=== PATIENT | male | born 1980 | race Caucasian/White ===

== ENCOUNTER 2019-03-24 | Observation (INO) | payer BC, SELFPAY ==
[2019-03-24] VITALS (15 sets, daily range): BP systolic 121–186; BP diastolic 55–118; PULSE 72–96; RESP 14–101; TEMP 36.2–36.9; O2SAT 95–100; BMI 30.4; BMI 30.2
--- NOTE | 2019-03-24 00:06 | DI.RAD.S_ITS ---
PROCEDURE: XR CHEST 1V INDICATIONS: chest pain TECHNIQUE: One view of the chest was acquired. COMPARISON: CR, CHEST 2VW, 11/21/2007, 18:28. FINDINGS: Surgical changes and devices: None. Lungs and pleura: Lungs are clear. No pleural effusions or pneumothorax. Mediastinum: Mediastinal contours appear normal. Heart size is normal. Bones and chest wall: No suspicious bony lesions. Overlying soft tissues appear unremarkable. IMPRESSION: Normal for age, source of current chest pain symptoms is not seen. Dictated by: Rosendo Díaz M.D. on 03/24/2019 at 8:26 Approved by: Rosendo Díaz M.D. on 03/24/2019 at 8:27
[2019-03-24] MEDS: ASPIRIN 81 MG TAB 324 MG PO (00:14)
[2019-03-24] MEDS: SODIUM CHLORIDE 0.9% 1,000 ML 1000 ML IV (00:15)
--- NOTE | 2019-03-24 00:36 | ED.CHESTPAIN ---
HPI - Chest Pain General Chief Complaint: Chest Pain Stated Complaint: tightness in chest has HBP dizziness Time Seen by Provider: 03/24/19 00:06 Source: patient Mode of arrival: ambulatory Limitations: no limitations History of Present Illness HPI narrative: Patient is a 38-year-old male who presents with chest tightness and shaking. He says it started suddenly this evening. He heard his kids running around will come from his sleep and then he noticed it. He knows that his blood pressure was quite elevated he does have a history of hypertension he took an extra lisinopril tablet. Pain sort of radiates to his neck but not his back or arms. He denies any shortness of breath he feels shaky all over. He says that he just got back from vacation he admits to drinking more than 6 drinks a day while on vacation he has not had any alcohol in over 24 hours. He was drinking water today he worked outside in the hot weather as well. He denies any nausea no abdominal pain no dyspnea with exertion. He does have a family history his father had CA with stents at the age of 50 , also grandfather's both sides had heart issues in their 60s is 70 MD complaint: chest pain Onset (ago): minute(s) Duration: constant Onset: during rest Pain location: substernal Severity: moderate Quality: tightness Relieving factors: nothing Exacerbating factors: nothing Related Data Allergies Allergy/AdvReac Type Severity Reaction Status Date / Time No Known Drug Allergies Allergy Verified 03/24/19 00:09 Review of Systems Review of Systems GENERAL: Denies chills, fatigue, malaise, fever, sweats, travel HEENT: Denies sinus pain, ear pain, sore throat, difficulty swallowing, neck pain RESPIRATORY: Denies dyspnea, cough, wheezing, hemoptysis, sputum. CARDIOVASCULAR: See HPI GASTROINTESTINAL: Denies nausea, vomiting, abdominal pain, diarrhea, constipation, melena. : Denies dysuria, frequency, incontinence, hematuria, urinary retention, flank pain. MUSCULOSKELETAL: Denies weakness, joint pain, or bony pain SKIN: No rash, no erythema, no pruritus NEUROLOGIC: Denies weakness, dizziness, headache, numbness, change in speech, confusion PSYCHIATRIC: No concerning psychosocial issues. 12 point review of systems is negative except for those stated above and HPI [facility] Medical History Hypertension (Acute) Social History (Updated 03/24/19 @ 00:39 by Christina Arrieta DO) household members: spouse Smoking Status: Never smoker alcohol intake: current Social History household members: spouse Smoking Status: Never smoker alcohol intake: current Exam Initial Vital Signs Initial Vital Signs: Vital Signs Temperature 98.2 F 03/24/19 00:03 Pulse Rate 87 03/24/19 00:03 Respiratory Rate 17 03/24/19 00:03 Blood Pressure 186/118 H 03/24/19 00:03 Pulse Oximetry 100 03/24/19 00:03 GENERAL: Well-appearing, well-nourished and in no acute distress. HEENT: Head atraumatic,EOMI, pupils reactive, face symmetric, moist mucous membranes CARDIOVASCULAR: Regular rate and rhythm without murmurs, rubs or gallops. RESPIRATORY: Breath sounds equal bilaterally, no wheezes rales or rhonchi. ABDOMEN: Soft, nontender. Normoactive bowel sounds all 4 quadrants. No guarding or rebound. EXTREMITIES: Normal range of motion, no clubbing or edema. Neurovascularly intact NEUROLOGICAL: Alert and oriented x4.Normal gait and speech. Cranial nerves II through XII grossly intact. No obvious tremors or asterixis SKIN: Warm, dry, no laceration, no petechiae, no rashes or lesions. Scores PERC Score Age greater than or equal to 50 years: No Heart rate greater than or equal to 100 bpm: No Room Air O2 Sat less than 95%: No Unilateral leg swelling: No Recent trauma or surgery: No Hemoptysis: No Prior PE or DVT: No Hormone Use: No Total PERC Score: 0 Wells' Criteria for PE Clinical signs and symptoms of DVT: No PE is #1 Dx or equally likely: No Heart rate > 100: No Immobilization at least 3 days or surg in previous 4 weeks: No History of PE or DVT: No Hemoptysis: No Malignancy w/Treatment within 6 months or palliative: No Wells' PE Score total: 0 Course Orders Ordered: ED Orders 03/24/19 00:06 XR chest 1V Stat EKG-12 Lead Stat 03/24/19 00:25 B Type Natriuretic Peptide Stat Complete Blood Count AUTO DIFF Stat Comprehensive Metabolic Panel Stat Lipase Stat Troponin & CK Cardiac Panel Stat 03/24/19 01:00 Lipid Panel Stat 03/24/19 03:25 Troponin I Stat Sodium Chloride (Normal Saline 0.9%) 1,000 mls @ 1,000 mls/hr IV CONT NATASHA Last Infusion: 03/24/19 01:51 Dose: 0 mls/hr Admin: 03/24/19 00:15 Dose: 1,000 mls/hr Discontinued Medications Aspirin (Aspirin Chew) 324 mg PO NOW ONE Stop: 03/24/19 00:07 Last Admin: 03/24/19 00:14 Dose: 324 mg Nitroglycerin (Nitrostat) 0.4 mg SL NOW ONE Stop: 03/24/19 01:28 Last Admin: 03/24/19 01:42 Dose: 0.4 mg Vital Signs - 8 hr 03/24/19 00:03 03/24/19 00:33 03/24/19 01:42 Temperature 98.2 F Pulse Rate 87 82 78 Respiratory Rate 17 19 Blood Pressure 186/118 H 150/55 H Blood Pressure [Left Arm] 128/83 Pulse Oximetry 100 99 03/24/19 01:48 03/24/19 01:54 03/24/19 02:39 Temperature Pulse Rate 96 H 94 H 80 Respiratory Rate 101 H 18 Blood Pressure 140/83 Blood Pressure [Left Arm] 140/83 138/90 Pulse Oximetry 98 98 03/24/19 03:55 Temperature Pulse Rate 77 Respiratory Rate 17 Blood Pressure Blood Pressure [Left Arm] 144/91 H Pulse Oximetry 97 MDM - Chest Pain Lab Data Attestation: I reviewed the patient's lab results. Result diagrams: 03/24/19 00:25 03/24/19 00:25 Lab Results 03/24/19 03/24/19 03/24/19 Range/Units 00:25 00:25 00:25 WBC 8.9 (4.5-11.0) X10^3/uL RBC 4.78 (4.5-5.9) X10^6/uL Hgb 15.6 (13.5-17.5) g/dL Hct 45.1 (41-53) % MCV 94.3 (80-100) fL MCH 32.6 (26-34) PG MCHC 34.5 (30-36) % RDW 13.1 (11.6-14.8) % Plt Count 338 (150-400) X10^3/uL Neut % (Auto) 46.8 L (50-75) % Lymph % (Auto) 41.0 H (25-40) % Fisher % (Auto) 9.0 (3-14) % Eos % (Auto) 2.6 (2-4) % Baso % (Auto) 0.6 (0-2) % Neut # (Auto) 4200 (6793-4942) /uL Lymph # (Auto) 3700 (6517-0120) /uL Fisher # (Auto) 80 (0-900) /uL Eos # (Auto) 20 (0-450) /uL Baso # (Auto) 10 (0-100) /uL D-Dimer Cancelled Sodium 133 L (137-145) mmol/L Potassium 4.5 (3.4-5.1) mmol/L Chloride 98 (98-107) mmol/L Carbon Dioxide 20 L (22-32) mmol/L BUN 15 (9-20) mg/dL Creatinine 0.80 (0.66-1.25) mg/dL Estimated GFR > 60.0 (>60) mL/min BUN/Creatinine Ratio 18.8 (6-22) Glucose 97 (70-100) mg/dL Calcium 8.6 (8.4-10.2) mg/dL Total Bilirubin 2.1 H (0.2-1.3) mg/dL AST 213 H (17-59) IU/L ALT 70 (21-72) IU/L Alkaline Phosphatase 103 (38-126) U/L Total Creatine Kinase 120 (55-170) U/L CK-MB (CK-2) 1.33 (<2.37) ng/mL CK-MB (CK-2) Rel Index 1.1 L (1.5-5.0) % Troponin I 0.018 (0.01-0.034) ng/mL B-Natriuretic Peptide < 100 (<100) Total Protein 8.6 H (6.3-8.2) g/dL Albumin 4.3 (3.5-5.0) g/dL Globulin 4.3 H (1.7-4.1) g/dL Albumin/Globulin Ratio 1.0 (1.0-2.8) Triglycerides (35-150) mg/dL Cholesterol (140-199) mg/dL LDL Cholesterol, Calc HDL Cholesterol (40-60) mg/dL Lipase 88 (23-300) U/L 03/24/19 03/24/19 Range/Units 01:00 03:25 WBC (4.5-11.0) X10^3/uL RBC (4.5-5.9) X10^6/uL Hgb (13.5-17.5) g/dL Hct (41-53) % MCV (80-100) fL MCH (26-34) PG MCHC (30-36) % RDW (11.6-14.8) % Plt Count (150-400) X10^3/uL Neut % (Auto) (50-75) % Lymph % (Auto) (25-40) % Fisher % (Auto) (3-14) % Eos % (Auto) (2-4) % Baso % (Auto) (0-2) % Neut # (Auto) (6635-8605) /uL Lymph # (Auto) (9971-5717) /uL Fisher # (Auto) (0-900) /uL Eos # (Auto) (0-450) /uL Baso # (Auto) (0-100) /uL D-Dimer Sodium (137-145) mmol/L Potassium (3.4-5.1) mmol/L Chloride (98-107) mmol/L Carbon Dioxide (22-32) mmol/L BUN (9-20) mg/dL Creatinine (0.66-1.25) mg/dL Estimated GFR (>60) mL/min BUN/Creatinine Ratio (6-22) Glucose (70-100) mg/dL Calcium (8.4-10.2) mg/dL Total Bilirubin (0.2-1.3) mg/dL AST (17-59) IU/L ALT (21-72) IU/L Alkaline Phosphatase (38-126) U/L Total Creatine Kinase (55-170) U/L CK-MB (CK-2) (<2.37) ng/mL CK-MB (CK-2) Rel Index (1.5-5.0) % Troponin I 0.017 (0.01-0.034) ng/mL B-Natriuretic Peptide (<100) Total Protein (6.3-8.2) g/dL Albumin (3.5-5.0) g/dL Globulin (1.7-4.1) g/dL Albumin/Globulin Ratio (1.0-2.8) Triglycerides 4451 H (35-150) mg/dL Cholesterol 424 H (140-199) mg/dL LDL Cholesterol, Calc TNP HDL Cholesterol 19 L (40-60) mg/dL Lipase (23-300) U/L Urine Dip Bedside Urine Glucose Negative Bedside Urine Bilirubin - Negative Bedside Urine Ketone ++ 40 Urine Specific [place] 1.020 Bedside Urine Occult Blood - Negative Bedside Urine pH 5.5 Bedside Urine Protein +/- 15 Bedside Urine Urobilinogen - Negative Bedside Urine Nitrite - Negative Bedside Urine Leukocytes - Negative Esterase Imaging Data Chest x-ray: Attestation: I personally reviewed and interpreted this imaging study as follows: My impression: no acute cardiopulmonary process ECG Data Attestation: I personally reviewed and interpreted this ECG as follows: Prior ECG tracings: not available for review Interpretation: Normal sinus rhythm rate 87 P are interval 157 QRS [address] changes some artifact noted no T-wave inversions EKG 2. Sinus rhythm rate [address] changes or T-wave inversions similar to prior MDM Narrative Medical decision making narrative: Lab called and said that patient's blood is at milky and they needed to re-draw him. Lipid panel is added to the blood work he has extremely elevated triglycerides. He says that while on vacation he ate a bunch of meat and he drank alcohol heavily. He says typically he eats salads. Overall his pain has decreased his blood pressure has improved. He was given nitroglycerin to see if that helped with his chest discomfort by that time it was almost gone he did not notice much change or difference with nitroglycerin. He traveled some more close in state just under 4 hours away at this time I do not the patient has a PE. Low risk. DTs was considered with patient's shakiness however he has no active tremors and does not seem to be in withdrawal from alcohol. All of the symptoms seem to have improved while in the emergency department. Patient has familial history of cardiac disease at young age with significantly elevated triglycerides and concerning symptoms. At this time he has 2-troponins but will still need to have cardiac stress testing be placed on medications. 4:10 a.m. Elijah MOSES updated on patients symptoms test results agrees with observation. Discharge Plan Departure Patient Disposition: Admitted as Observation Clinical Impression: Essential hypertriglyceridemia Chest pain Qualifiers: Chest pain type: unspecified Qualified Code(s): R07.9 - Chest pain, unspecified Admit Date/Time: 03/24/19 04:06 Admit Provider: Dwayne Robbins
--- NOTE | 2019-03-24 00:39 | ED_ITS ---
HPI - Chest Pain General Chief Complaint: Chest Pain Stated Complaint: tightness in chest has HBP dizziness Time Seen by Provider: 03/24/19 00:06 Source: patient Mode of arrival: ambulatory Limitations: no limitations History of Present Illness HPI narrative: Patient is a 38-year-old male who presents with chest tightness and shaking. He says it started suddenly this evening. He heard his kids running around will come from his sleep and then he noticed it. He knows that his blood pressure was quite elevated he does have a history of hypertension he took an extra lisinopril tablet. Pain sort of radiates to his neck but not his back or arms. He denies any shortness of breath he feels shaky all over. He s ays that he just got back from vacation he admits to drinking more than 6 drinks a day while on vacation he has not had any alcohol in over 24 hours. He was drinking water today he worked outside in the hot weather as well. He denies any nausea no abdominal pain no dyspnea with exertion. He does have a family history his father had MS with stents at the age of 50 , also grandfather's both sides had heart issues in their 60s is 70 MD complaint: chest pain Onset (ago): minute(s) Duration: constant Onset: during rest Pain location: substernal Severity: moderate Quality: tightness Relieving factors: nothing Exacerbating factors: nothing Related Data Allergies Allergy/AdvReac Type Severity Reaction Status Date / Time No Known Drug Allergies Allergy Verified 03/24/19 00:09 Review of Systems Review of Systems GENERAL: Denies chills, fatigue, malaise, fever, sweats, travel HEENT: Denies sinus pain, ear pain, sore throat, difficulty swallowing, neck pain RESPIRATORY: Denies dyspnea, cough, wheezing, hemoptysis, sputum. CARDIOVASCULAR: See HPI GASTROINTESTINAL: Denies nausea, vomiting, abdominal pain, diarrhea, constipation, melena. : Denies dysuria, frequency, incontinence, hematuria, urinary retention, flank pain. MUSCULOSKELETAL: Denies weakness, joint pain, or bony pain SKIN: No rash, no erythema, no pruritus NEUROLOGIC: Denies weakness, dizziness, headache, numbness, change in speech, confusion PSYCHIATRIC: No concerning psychosocial issues. 12 point review of systems is negative except for those stated above and HPI [facility] Medical History Hypertension (Acute) Social History (Updated 03/24/19 @ 00:39 by Christina Arrieta DO) household members: spouse Smoking Status: Never smoker alcohol intake: current Social History household members: spouse Smoking Status: Never smoker alcohol intake: current Exam Initial Vital Signs Initial Vital Signs: Vital Signs Temperature 98.2 F 03/24/19 00:03 Pulse Rate 87 03/24/19 00:03 Respiratory Rate 17 03/24/19 00:03 Blood Pressure 186/118 H 03/24/19 00:03 Pulse Oximetry 100 03/24/19 00:03 GENERAL: Well-appearing, well-nourished and in no acute distress. HEENT: Head atraumatic,EOMI, pupils reactive, face symmetric, moist mucous membranes CARDIOVASCULAR: Regular rate and rhythm without murmurs, rubs or gallops. RESPIRATORY: Breath sounds equal bilaterally, no wheezes rales or rhonchi. ABDOMEN: Soft, nontender. Normoactive bowel sounds all 4 quadrants. No guardi ng or rebound. EXTREMITIES: Normal range of motion, no clubbing or edema. Neurovascularly intact NEUROLOGICAL: Alert and oriented x4.Normal gait and speech. Cranial nerves II through XII grossly intact. No obvious tremors or asterixis SKIN: Warm, dry, no laceration, no petechiae, no rashes or lesions. Scores PERC Score Age greater than or equal to 50 years: No Heart rate greater than or equal to 100 bpm: No Room Air O2 Sat less than 95%: No Unilateral leg swelling: No Recent trauma or surgery: No Hemoptysis: No Prior PE or DVT: No Hormone Use: No Total PERC Score: 0 Wells' Criteria for PE Clinical signs and symptoms of DVT: No PE is #1 Dx or equally likely: No Heart rate > 100: No Immobilization at least 3 days or surg in previous 4 weeks: No History of PE or DVT: No Hemoptysis: No Malignancy w/Treatment within 6 months or palliative: No Wells' PE Score total: 0 Course Orders Ordered: ED Orders 03/24/19 00:06 XR chest 1V Stat EKG-12 Lead Stat 03/24/19 00:25 B Type Natriuretic Peptide Stat Complete Blood Count AUTO DIFF Stat Comprehensive Metabolic Panel Stat Lipase Stat Troponin & CK Cardiac Panel Stat 03/24/19 01:00 Lipid Panel Stat 03/24/19 03:25 Troponin I Stat Sodium Chloride (Normal Saline 0.9%) 1,000 mls @ 1,000 mls/hr IV CONT NATASHA Last Infusion: 03/24/19 01:51 Dose: 0 mls/hr Admin: 03/24/19 00:15 Dose: 1,000 mls/hr Discontinued Medications Aspirin (Aspirin Chew) 324 mg PO NOW ONE Stop: 03/24/19 00:07 Last Admin: 03/24/19 00:14 Dose: 324 mg Nitroglycerin (Nitrostat) 0.4 mg SL NOW ONE Stop: 03/24/19 01:28 Last Admin: 03/24/19 01:42 Dose: 0.4 mg Vital Signs - 8 hr 03/24/19 00:03 03/24/19 00:33 03/24/19 01:42 Temperature 98.2 F Pulse Rate 87 82 78 Respiratory Rate 17 19 Blood Pressure 186/118 H 150/55 H Blood Pressure [Left Arm] 128/83 Pulse Oximetry 100 99 03/24/19 01:48 03/24/19 01:54 03/24/19 02:39 Temperature Pulse Rate 96 H 94 H 80 Respiratory Rate 101 H 18 Blood Pressure 140/83 Blood Pressure [Left Arm] 140/83 138/90 Pulse Oximetry 98 98 03/24/19 03:55 Temperature Pulse Rate 77 Respiratory Rate 17 Blood Pressure Blood Pressure [Left Arm] 144/91 H Pulse Oximetry 97 MDM - Chest Pain Lab Data Attestation: I reviewed the patient's lab results. Result diagrams: 03/24/19 00:25 03/24/19 00:25 Lab Results 03/24/19 03/24/19 03/24/19 Range/Units 00:25 00:25 00:25 WBC 8.9 (4.5-11.0) X10^3/uL RBC 4.78 (4.5-5.9) X10^6/uL Hgb 15.6 (13.5-17.5) g/dL Hct 45.1 (41-53) % MCV 94.3 (80-100) fL MCH 32.6 (26-34) PG MCHC 34.5 (30-36) % RDW 13.1 (11.6-14.8) % Plt Count 338 (150-400) X10^3/uL Neut % (Auto) 46.8 L (50-75) % Lymph % (Auto) 41.0 H (25-40) % [place] % (Auto) 9.0 (3-14) % Eos % (Auto) 2.6 (2-4) % Baso % (Auto) 0.6 (0-2) % Neut # (Auto) 4200 (6195-9220) /uL Lymph # (Auto) 3700 (7951-9342) /uL [place] # (Auto) 80 (0-900) /uL Eos # (Auto) 20 (0-450) /uL Baso # (Auto) 10 (0-100) /uL D-Dimer Cancelled Sodium 133 L (137-145) mmol/L Potassium 4.5 (3.4-5.1) mmol/L Chloride 98 (98-107) mmol/L Carbon Dioxide 20 L (22-32) mmol/L BUN 15 (9-20) mg/dL Creatinine 0.80 (0.66-1.25) mg/dL Estimated GFR > 60.0 (>60) mL/min BUN/Creatinine Ratio 18.8 (6-22) Glucose 97 (70-100) mg/dL Calcium 8.6 (8.4-10.2) mg/dL Total Bilirubin 2.1 H (0.2-1.3) mg/dL AST 213 H (17-59) IU/L ALT 70 (21-72) IU/L Alkaline Phosphatase 103 (38-126) U/L Total Creatine Kinase 120 (55-170) U/L CK-MB (CK-2) 1.33 (<2.37) ng/mL CK-MB (CK-2) Rel Index 1.1 L (1.5-5.0) % Troponin I 0.018 (0.01-0.034) ng/mL B-Natriuretic Peptide < 100 (<100) Total Protein 8.6 H (6.3-8.2) g/dL Albumin 4.3 (3.5-5.0) g/dL Globulin 4.3 H (1.7-4.1) g/dL Albumin/Globulin Ratio 1.0 (1.0-2.8) Triglycerides (35-150) mg/dL Cholesterol (140-199) mg/dL LDL Cholesterol, Calc HDL Cholesterol (40-60) mg/dL Lipase 88 (23-300) U/L 03/24/19 03/24/19 Range/Units 01:00 03:25 WBC (4.5-11.0) X10^3/uL RBC (4.5-5.9) X10^6/uL Hgb (13.5-17.5) g/dL Hct (41-53) % MCV (80-100) fL MCH (26-34) PG MCHC (30-36) % RDW (11.6-14.8) % Plt Count (150-400) X10^3/uL Neut % (Auto) (50-75) % Lymph % (Auto) (25-40) % [place] % (Auto) (3-14) % Eos % (Auto) (2-4) % Baso % (Auto) (0-2) % Neut # (Auto) (9649-5876) /uL Lymph # (Auto) (7940-0380) /uL [place] # (Auto) (0-900) /uL Eos # (Auto) (0-450) /uL Baso # (Auto) (0-100) /uL D-Dimer Sodium (137-145) mmol/L Potassium (3.4-5.1) mmol/L Chloride (98-107) mmol/L Carbon Dioxide (22-32) mmol/L BUN (9-20) mg/dL Creatinine (0.66-1.25) mg/dL Estimated GFR (>60) mL/min BUN/Creatinine Ratio (6-22) Glucose (70-100) mg/dL Calcium (8.4-10.2) mg/dL Total Bilirubin (0.2-1.3) mg/dL AST (17-59) IU/L ALT (21-72) IU/L Alkaline Phosphatase (38-126) U/L Total Creatine Kinase (55-170) U/L CK-MB (CK-2) (<2.37) ng/mL CK-MB (CK-2) Rel Index (1.5-5.0) % Troponin I 0.017 (0.01-0.034) ng/mL B-Natriuretic Peptide (<100) Total Protein (6.3-8.2) g/dL Albumin (3.5-5.0) g/dL Globulin (1.7-4.1) g/dL Albumin/Globulin Ratio (1.0-2.8) Triglycerides 4451 H (35-150) mg/dL Cholesterol 424 H (140-199) mg/dL LDL Cholesterol, Calc TNP HDL Cholesterol 19 L (40-60) mg/dL Lipase (23-300) U/L Urine Dip Bedside Urine Glucose Negative Bedside Urine Bilirubin - Negative Bedside Urine Ketone ++ 40 Urine Specific [place] 1.020 Bedside Urine Occult Blood - Negative Bedside Urine pH 5.5 Bedside Urine Protein +/- 15 Bedside Urine Urobilinogen - Negative Bedside Urine Nitrite - Negative Bedside Urine Leukocytes - Negative Esterase Imaging Data Chest x-ray: Attestation: I personally reviewed and interpreted this imaging study as follows: My impression: no acute cardiopulmonary process ECG Data Attestation: I personally reviewed and interpreted this ECG as follows: Prior ECG tracings: not available for review Interpretation: Normal sinus rhythm rate 87 P are interval 157 QRS [address] changes some artifact noted no T-wave inversions EKG 2. Sinus rhythm rate [address] changes or T-wave inversions similar to prior MDM Narrative Medical decision making narrative: Lab called and said that patient's blood is at milky and they needed to re-draw him. Lipid panel is added to the blood work he has extremely elevated triglycerides. He says that while on vacation he ate a bunch of meat and he drank alcohol heavily. He says typically he eats salads. Overall his pain has decreased his blood pressure has improved. He was given nitroglycerin to see if that helped with his chest discomfort by that time it was almost gone he did not notice much change or difference with nitroglycerin. He traveled some more close [place] state just under 4 hours away at this time I do not the patient has a PE. Low risk. DTs was considered with patient's shakiness however he has no active tremors and does not seem to be in withdrawal from alcohol. All of the symptoms seem to have improved while in the emergency department. Patient has familial history of cardiac disease at young age with significantly elevated triglycerides and concerning symptoms. At this time he has 2-troponins but will still need to have cardiac stress testing be placed on medications. 4:10 a.m. Elijah MOSES updated on patients symptoms test results agrees with observation. Discharge Plan Departure Patient Disposition: Admitted as Observation Clinical Impression: Essential hypertriglyceridemia Chest pain Qualifiers: Chest pain type: unspecified Qualified Code(s): R07.9 - Chest pain, unspecified Admit Date/Time: 03/24/19 04:06 Admit Provider: Dwayne Robbins
[2019-03-24 01:06] LABS: B Type Natriuretic Peptide < 100 (<100)
[2019-03-24 01:17] LABS: Alanine Aminotransferase 70 IU/L (21-72); Albumin 4.3 g/dL (3.5-5.0); Alkaline Phosphatase 103 U/L (38-126); BUN Creatinine Ratio 18.8 (6-22); Bilirubin Total 2.1 mg/dL (0.2-1.3); Blood Urea Nitrogen 15 mg/dL (9-20); Calcium 8.6 mg/dL (8.4-10.2); Carbon Dioxide 20 mmol/L (22-32); Chloride 98 mmol/L (98-107); Creatine Kinase 120 U/L (55-170); Estimated Glomerular Filt Rate > 60.0 mL/min (>60); Globulin 4.3 g/dL (1.7-4.1); Glucose 97 mg/dL (70-100); Lipase 88 U/L (23-300); Sodium 133 mmol/L (137-145); Total Protein 8.6 g/dL (6.3-8.2); Troponin I 0.018 ng/mL (0.01-0.034)
[2019-03-24 01:22] LABS: HEMOLYSIS 468 (0-50)
[2019-03-24 01:23] LABS: CKMB % Relative Index 1.1 % (1.5-5.0); Creatine Kinase MB 1.33 ng/mL (<2.37)
[2019-03-24 01:25] LABS: HDL Cholesterol 19 mg/dL (40-60)
[2019-03-24 01:29] LABS: Potassium 4.5 mmol/L (3.4-5.1)
[2019-03-24 01:30] LABS: Aspartate Aminotransferase 213 IU/L (17-59)
[2019-03-24 01:31] LABS: Cholesterol 424 mg/dL (140-199)
[2019-03-24 01:32] LABS: Platelet Count 338 X10^3/uL (150-400); White Blood Cell Count 8.9 X10^3/uL (4.5-11.0)
[2019-03-24 01:35] LABS: Eosinophils Percent Auto 2.6 % (2-4); Hematocrit 45.1 % (41-53); Hemoglobin 15.6 g/dL (13.5-17.5); Mean Corpuscular HGB Conc 34.5 % (30-36); Mean Corpuscular Hemoglobin 32.6 PG (26-34); Mean Corpuscular Volume 94.3 fL (80-100); Neutrophils Percent Auto 46.8 % (50-75); Red Blood Cell Count 4.78 X10^6/uL (4.5-5.9); Red Cell Distribution Width 13.1 % (11.6-14.8)
[2019-03-24 01:36] LABS: Add Manual Diff / Slide Review NO; Basophils Absolute Auto 10 /uL (0-100); Basophils Percent Auto 0.6 % (0-2); Eosinophils Absolute Auto 20 /uL (0-450); Lymphocytes Absolute Auto 3700 /uL (1100-4500); Monocytes Absolute Auto 80 /uL (0-900); Neutrophils Absolute Auto 4200 /uL (1500-7000)
[2019-03-24] MEDS: NITROGLYCERIN 0.4 MG SL TAB SL (01:42)
[2019-03-24 01:47] LABS: Triglycerides 4451 mg/dL (35-150)
[2019-03-24 03:56] LABS: Troponin I 0.017 ng/mL (0.01-0.034)
--- NOTE | 2019-03-24 04:22 | DI.ECHO.S_ITS ---
[facility] +---------+ : : [address] : : : : [id number] : : : : Phone: [phone] Echocardiogram Report + + :Name: EMILY THOMASON Study Date: 03/24/2019 Height: 71 in : :[facility] Exam Location: [facility] Weight: 218 lb : : Gender: Male BSA: 2.2 m2 : :: 1980 Age: 38 yrs BP: 154/94 mmHg: :Reason For Study: CHEST PAIN : : Performed By: Neeraj Diggs : :Referring: BRANDT HUFF : + + Interpretation Summary Mild concentric left ventricular hypertrophy with ejection fraction 60-65%. Mild right ventricular hypertrophy with normal right ventricular systolic function. Severely dilated left atrium. No valvular abnormality. Mildly enlarged ascending aorta and aortic arch. Procedure: A two-dimensional transthoracic echocardiogram with color flow and Doppler was performed. The study quality was technically good. There is no prior echocardiogram noted for this patient. The patient was in normal sinus rhythm during the exam. The patient had occasional PVCs during the exam. Left Ventricle: The left ventricle is normal in size. There is mild concentric left ventricular hypertrophy. The ejection fraction is estimated to be 60-65%. There are no focal wall motion abnormalities. Diastolic parameters suggest probable normal left ventricular diastolic function and normal filling pressures. Right Ventricle: There is mild right ventricular hypertrophy. The right ventricular systolic function is normal. Atria: The left atrium is severely dilated. Right atrial size is normal. The interatrial septum is intact with no evidence for an atrial septal defect. Mitral Valve: The mitral valve is normal in structure and function. There is trace mitral regurgitation. Aortic Valve: The aortic valve is normal in structure and function. The aortic valve opens well. No aortic regurgitation is present. Tricuspid Valve: The tricuspid valve is normal in structure and function. There is trace tricuspid regurgitation. The right ventricular systolic pressure is estimated to be at least 27 mmHg based on an estimated right atrial pressure of 3 mm Hg. Pulmonic Valve: The pulmonic valve is normal in structure and function. There is trace pulmonic regurgitation. Great Vessels: The aortic root is mildly dilated. The ascending aorta is mildly enlarged. The aortic arch is mildly enlarged. Mild pulmonary artery dilation. The IVC is of normal diameter and collapses greater than 50% with a sniff. This suggests a low right atrial pressure of 3 mm Hg. Pericardium/ Pleura There is no pericardial effusion. There is no pleural effusion. MMode/2D Measurements & Calculations LVIDd: 5.4 cm LVOT diam: 3.1 cm LVIDs: 3.8 cm Ao root diam: 4.2 cm FS: 29.5 % Aortic Jxn: 3.4 cm EPSS: 0.54 cm asc Aorta Diam: 4.3 cm IVSd: 1.2 cm Ao Arch Diam (Prox Trans): 3.2 cm LVPWd: 1.1 cm LV carter. diameter/BSA (cm/m^2): 2.5 LV sys. diameter/BSA (cm/m^2): 1.7 LA dimension: 4.6 cm RA long axis: 4.9 cm LA A2 area: 25.9 cm2 RA area: 16.7 cm2 LA A4 area: 26.3 cm2 RA vol: 47.8 ml LA length (vol): 5.4 cm RA : 21.9 ml/m2 LA vol: 107.0 ml IVC diam: 1.9 cm LA vol index: 48.9 ml/m2 RVD1 (basal): 4.4 cm RVD2 (mid): 4.9 cm Doppler Measurements & Calculations Ao V2 max: 114.0 cm/sec LVOT Max Manolo: 94.1 cm/sec Ao V2 mean: 84.6 cm/sec LV V1 max P.5 mmHg Ao max P.2 mmHg LV V1 VTI: 18.0 cm Ao mean P.1 mmHg MICHAEL(I,D): 6.8 cm2 Ao V2 VTI: 20.2 cm MICHAEL(V,D): 6.3 cm2 sev ratio: 0.89 MICHAEL indexed to BSA (cm^2/m^2): 3.1 MV E max manolo: 59.8 cm/sec TR max manolo: 245.9 cm/sec MV A max manolo: 64.8 cm/sec TR max P.2 mmHg MV E/A: 0.92 PA V2 max: 88.0 cm/sec Med Peak E' Manolo: 6.5 cm/sec PA V2 mean: 61.8 cm/sec E/E' med: 9.2 PA mean P.7 mmHg Lat Peak E' Manolo: 10.2 cm/sec PA pr(Accel): 44.1 mmHg E/E' lat: 5.9 PA Accel Time: 0.08 sec E/e' average: 7.5 MV dec time: 0.22 sec SV(LVOT): 136.6 ml Electronically signed by: Ainsley Contreras on Reading Physician:03/24/2019 02:48 PM
--- NOTE | 2019-03-24 04:22 | DI.NM.S_ITS ---
PROCEDURE: NM YANE PERF SPECT SINGLE STUDY Exercise myocardial perfusion SPECT with gated imaging and ejection fraction RADIOPHARMACEUTICAL: 19.8 mCi Tc-99m sestamibi IV at peak exercise. INDICATIONS: Chest pain, strong family history, severe hyperlipidemia TECHNIQUE: Radiopharmaceutical was injected at peak stress test. SPECT images were obtained, with perfusion images in short axis, horizontal long axis, and vertical long axis views. Gated images were reviewed using 3 Four 5 Group software. COMPARISON: None. CARDIAC STRESS: A standard Galen treadmill exercise tolerance test was performed by the patient under the supervision of an attending staff. The patient exercised for 8 minutes and 15 seconds; functional aerobic impairment (JIMENA) is +35%. Hemodynamic data: There is normal blood pressure and heart response to exercise. Patient achieved 85% of maximum predicted heart rate. Symptoms: Patient denied anginal chest pain during exercise. EKG: No diagnostic changes of ischemia; no ectopy. FINDINGS: Raw data: There is good labeling of myocardium by radiotracer. No significant motion artifacts. Bkie-me-nlmfh ratio is 0.24 (normal is less than 0.38 for sestamibi tracer, and less than 0.50 for thallium tracer). Left ventricular function: Gated images demonstrate normal left ventricle wall thickening. No segmental wall motion abnormalities. Left ventricle end diastolic volume is 181 mL. Left ventricle stress ejection fraction is 57% ; normal values are above 45%. Myocardial perfusion: There is normal distribution of activity in the left and right ventricular myocardium, without focal perfusion defects. IMPRESSION: Low risk, normal treadmill stress only nuclear stress test. Hypertension present during the study. 1) No perfusion evidence of ischemia or infarction. 2) Borderline enlarged left ventricle (EDV 181cc) with normal wall motion and normal systolic function (EF post stress 57%). 3) No ECG evidence of ischemia. 4) No angina during the study. 5) Reduced exercise tolerance (10.1 METs, JIMENA +35%). Target heart rate achieved. 6) Hypertension at rest (BP140/100 mmHg) and with exercise (max BP 190/110mmHg). 7) No prior nuclear stress test available for comparison. Dictated by: Tayla Hanson MD on 03/24/2019 at 14:53 Approved by: Tayla Hanson MD on 03/24/2019 at 14:57
--- NOTE | 2019-03-24 04:57 | PM.HP.1 ---
History of Present Illness Date Patient Seen: 03/24/19 Time Patient Seen: 04:57 Chief complaint: tightness in chest has HBP dizziness Narrative: Mr. Андрей Taylor is a 38-year-old male patient with history that is significant for hypertension and strong family history of cardiovascular disease who presents to the ER this morning for chest pain. Patient states he was awakened by his children and subsequently felt chest pressure in his upper chest radiating into his neck. He had associated symptoms of lightheadedness, dizziness but no complaints of diaphoresis, nausea vomiting or shortness of breath. He states he can tell when his blood pressure is high and took an extra lisinopril. He describes the pressures being nonpleuritic and has had palpitations in the past but none with the current event. He has a family history of his father having a stent at age 50 and grandfathers on both sides his family having cardiovascular disease. The patient has never had these symptoms before. He has additional risk factor of chewing tobacco for many years and quitting 3 years ago. He has had no recent illness, fevers or chills nasal congestion or sore throat. His chest discomfort began about 10-11 o'clock tonight and was relieved with sublingual nitro administered in the ER. The patient adds that he just got back from vacation where he had had drink liberal alcohol and and unhealthy diet. Upon arrival to the ER he was afebrile with a temperature 98.2? hypertensive at 186/118, heart rate of 87, respirations 17 and 100% on room air. Twelve lead EKG reviewed by myself finds a sinus arrhythmia with ventricular rate of 87, there is no ST or T-wave abnormalities, DC interval of 157 milliseconds, QRS 102 milliseconds, QTC 403 milliseconds. On CBC has a white count of 8.9, hemoglobin of 15.6 and hematocrit of 45.1 and platelets of 338. He has is slightly low sodium at 1:33 a.m. and potassium 4.5. His BUN is 15 and creatinine is 0.8 with nonfasting glucose of 97. He has had 2 troponins in the emergency department 1st at 0.18 and the 2nd at 0.17 He does have an elevated total bilirubin at 2.1 with an AST of 213 ALT of 70 and alkaline phosphatase of 1 3. He has lipase of 88 and BMP is less than 100. He has a significantly elevated cholesterol at 424, HDL low at 19, triglyceride level of 4451, unable to calculate LDL. Patient History Medical History (Updated 03/24/19 @ 04:05 by Christina Arrieta DO) Hypertension (Acute) Surgical History (Updated 03/24/19 @ 05:11 by JOSUÉ Bliss) No history of previous surgery (Acute) Family History (Updated 03/24/19 @ 05:13 by JOSUÉ Bliss) Father Cardiovascular disease Mother Hypothyroidism Sister Cancer Social History household members: spouse and children Smoking Status: Never smoker alcohol intake: current Family & Social History Social History: household members spouse Safety & Behavioral: Feels Safe in Current Yes Environment Tobacco & Substance use: Smoking Status Never smoker alcohol intake current alcohol intake frequency 3 or more drinks per day Substance Use Type does not use Comment: The patient lives in a single hand family home with his to whom he has been for 12 years. His family history of his father having cardiac stents placed at age 50 and both grass and father's having cardiovascular disease. He has 1 sibling a sister who had leukemia. 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 Substance use: The patient had previously tried cannabis but no current use. Advanced directives: In direct discussion with the patient he states his wishes to be a FULL CODE. He days meets his Brennon to be his surrogate decision maker. Meds Home Medications Medication Instructions Recorded Confirmed Type lisinopril 10 mg PO DAILY 03/24/19 03/24/19 History Allergies Allergy/AdvReac Type Severity Reaction Status Date / Time No Known Drug Allergies Allergy Verified 03/24/19 00:09 Review of Systems Review of Systems All systems reviewed & are unremarkable except as noted in HPI and below Exam Vital Signs (past 8 hours): - 03/24/19 00:03 03/24/19 00:33 03/24/19 01:42 Temperature 98.2 F Pulse Rate 87 82 78 Respiratory Rate 17 19 Blood Pressure 186/118 H 150/55 H Blood Pressure [Left Arm] 128/83 Pulse Oximetry 100 99 03/24/19 01:48 03/24/19 01:54 03/24/19 02:39 Temperature Pulse Rate 96 H 94 H 80 Respiratory Rate 101 H 18 Blood Pressure 140/83 Blood Pressure [Left Arm] 140/83 138/90 Pulse Oximetry 98 98 03/24/19 03:55 03/24/19 04:19 03/24/19 04:53 Temperature Pulse Rate 77 77 89 Respiratory Rate 17 17 18 Blood Pressure 121/83 Blood Pressure [Left Arm] 144/91 H 128/89 Pulse Oximetry 97 98 100 Oxygen Delivery Method Room Air Narrative Exam Narrative: GENERAL APPEARANCE: well developed, well nourished, in no acute distress. HEAD: Normocephalic, atraumatic, no scalp lesions. EYES: pupils equal, round, reactive to light and accommodation, sclera non-icteric, extraocular movement intact without nystagmus. EARS: normal external structures, no ear pain NOSE: sinuses non tender to percussion, no rhinorrhea ORAL CAVITY: mucosa moist without lesions or exudate, palate normal, tongue in midline. THROAT: normal, no erythema, no exudate, posterior pharynx normal, uvula midline. NECK/THYROID: neck supple, no jugular venous distention, no carotid bruit, no thyromegaly, trachea midline. LYMPH NODES: no cervical or supraclavicular lymphadenopathy. SKIN: Flushed, warm and dry, no suspicious lesions, no rashes, good turgor. HEART: regular rate and rhythm, S1-S2 without murmur, no rubs or gallops, brisk capillary refill, no edema LUNGS: clear to auscultation bilaterally, no coarseness crackles or wheezing, no cough present CHEST: Symmetrical movement, no accessory muscle use, no pain to AP and lateral compression. ABDOMEN: Soft, no distention, no epigastric or abdominal tenderness on palpation, no guarding or peritoneal signs, negative Cade sign, no organomegaly, no flank or suprapubic tenderness, active bowel tones. BACK: Normal curvature, nontender to palpation, no CVA tenderness on percussion EXTREMITIES: moves all extremities, strength is 5/5 and symmetrical, no deformities or joint effusions. NEUROLOGIC: AAO x4, no focal neurologic deficits, cranial nerves II-XII grossly intact , motor strength normal upper and lower extremities, sensory exam intact to light touch, hearing grossly normal to speech. PSYCH: alert, articulate, good eye contact, appropriate with stable behavior Objective Labs Result Diagrams: 03/24/19 00:25 03/24/19 00:25 Labs: Laboratory Results - last 24 hr 03/24/19 03/24/19 03/24/19 00:25 00:25 00:25 WBC 8.9 RBC 4.78 Hgb 15.6 Hct 45.1 MCV 94.3 MCH 32.6 MCHC 34.5 RDW 13.1 Plt Count 338 Neut % (Auto) 46.8 L Lymph % (Auto) 41.0 H [place] % (Auto) 9.0 Eos % (Auto) 2.6 Baso % (Auto) 0.6 Neut # (Auto) 4200 Lymph # (Auto) 3700 [place] # (Auto) 80 Eos # (Auto) 20 Baso # (Auto) 10 D-Dimer Cancelled Sodium 133 L Potassium 4.5 Chloride 98 Carbon Dioxide 20 L BUN 15 Creatinine 0.80 Estimated GFR > 60.0 BUN/Creatinine Ratio 18.8 Glucose 97 Calcium 8.6 Total Bilirubin 2.1 H AST 213 H ALT 70 Alkaline Phosphatase 103 Total Creatine Kinase 120 CK-MB (CK-2) 1.33 CK-MB (CK-2) Rel Index 1.1 L Troponin I 0.018 B-Natriuretic Peptide < 100 Total Protein 8.6 H Albumin 4.3 Globulin 4.3 H Albumin/Globulin Ratio 1.0 Triglycerides Cholesterol LDL Cholesterol, Calc HDL Cholesterol Lipase 88 03/24/19 03/24/19 01:00 03:25 WBC RBC Hgb Hct MCV MCH MCHC RDW Plt Count Neut % (Auto) Lymph % (Auto) [place] % (Auto) Eos % (Auto) Baso % (Auto) Neut # (Auto) Lymph # (Auto) [place] # (Auto) Eos # (Auto) Baso # (Auto) D-Dimer Sodium Potassium Chloride Carbon Dioxide BUN Creatinine Estimated GFR BUN/Creatinine Ratio Glucose Calcium Total Bilirubin AST ALT Alkaline Phosphatase Total Creatine Kinase CK-MB (CK-2) CK-MB (CK-2) Rel Index Troponin I 0.017 B-Natriuretic Peptide Total Protein Albumin Globulin Albumin/Globulin Ratio Triglycerides 4451 H Cholesterol 424 H LDL Cholesterol, Calc TNP HDL Cholesterol 19 L Lipase Assessment & Plan Assessment & Plan narrative: This is a 38-year-old male patient who wakes to tonight with chest pressure in the setting of a strong family history and findings of severe hyperlipidemia and triglyceridemia. 1. Acute chest pressure, improved. -patient with upper substernal chest pain radiating into the neck with associated dizziness. -chest discomfort resolved after arrival to the ER and administration of nitroglycerin sublingual, patient has remained pain-free. -EKG find sinus arrhythmia without ectopy ST or T-wave abnormalities, no indication of ischemia or infarct. -troponin x2, 1st 0.18, 2nd 0.17. Chest x-ray without mediastinal widening, pulmonary infiltrates, normal cardiac silhouette. -pain resolved nitroglycerin in the ER, nitroglycerin 0.4 mg sublingual acute 5 minutes x3 as needed chest pain. -aspirin 324 mg in the emergency department, will continue aspirin 81 mg daily. -morphine 2 mg IV every 5 minutes as needed for chest pain. -will obtain PT/INR and PTT. -echocardiogram and nuclear med stress test. -patient will be NPO for nuclear med testing, normal saline at 100 cc/hour. 2. Hypercholesterolemia, present on admission, unknown chronicity -total cholesterol 424, HDL 19, triglycerides 4451, unable to calculate LDL. No prior knowledge of elevated lipid profile. 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 -no evidence xanthomas, no upper abdominal pain, lipase is 88. -will obtain thyroid panel, hemoglobin A1c and SPENCER. -patient with recent diet high in red meat, he is NPO for cardiac testing and then to have heart healthy diet. -dietitian consult, very low fat diet (see less than 15%) and lifestyle change with weight loss. -Zearing 3 supplementation 1000 mg twice daily. 3. Chronic Essential hypertension, active -patient presents with an elevated blood pressure on upon arrival in the ER 186/118 which subsequently normalized to 121/83 at the time of evaluation. -patient is on lisinopril 10 mg daily and took 1 extra dose tonight. -will track blood pressures and evaluate need to elevate dose. Patient with intermittent Tommie cough which may increase with escalating drug does necessitating changed to ARB. The patient is admitted to the hospital related to severity of symptoms and symptoms and and risk for adverse events. Patient requires cardiac monitoring and additional evaluation. Patient is admitted as observation with expected length of stay to be less than 2 midnights. Scores GCS [place] coma scale eye opening: Spontaneous [place] coma scale verbal response: Orientated [place] coma scale motor response: Obey commands [place] coma scale total score: 15
[2019-03-24] MEDS: SODIUM CHLORIDE 0.9% 1,000 ML 100 ML IV (05:00)
--- NOTE | 2019-03-24 06:35 | PC.NURSE ---
[facility] Note: 0530: Admitted to ICU room 106 as floor care with telemetry. IV in place in upper rt arm, and NS started at 100cc/hr. Alert, oriented X3. Pt denies chest pain or pressure at this time, and agreed to notify nurse if any chest pain or pressure started. Oriented to room, call brennan, and plan for the day.
[2019-03-24 08:47] LABS: INR 0.9 (0.9-1.3); Prothrombin Time 10.3 SECONDS (10.1-12.7)
[2019-03-24 08:50] LABS: PTT Partial Thromboplastin Tim 29 SECONDS (26.4-36.2)
[2019-03-24 08:53] LABS: Hemoglobin A1C% w Est Avg Glu 4.7 % (4.0-6.0)
[2019-03-24] MEDS: ASPIRIN EC 81 MG TABLET PO (09:03)
[2019-03-24] MEDS: LISINOPRIL 10 MG TABLET PO (09:03)
[2019-03-24] MEDS: FISH OIL 1,000 MG CAPSULE 1000 MG PO ×2 (09:04→22:03)
[2019-03-24 09:08] LABS: Free T3, Triiodothyronine Free 5.37 pg/mL (2.77-5.27); Free T4, Direct Thyroxine 0.67 ng/dL (0.78-2.19)
[2019-03-24 09:22] LABS: Thyroid Stimulating Hormone 6.48 uIU/mL (0.47-4.68)
--- NOTE | 2019-03-24 12:13 | PC.NURSE ---
Addendum entered by Karrie Feldman R.N. 03/24/19 14:48: 1450-Dr Fiore into update Pt. Pt returned from [facility]. Ambulating into unit. Denies CP reports ease of testing, and Pt is hopeful to d/c home soon. Updated on POC and waiting for results on cardiology. Addendum entered by Karrie Feldman R.N. 03/24/19 14:23: 1210-Pt off floor to [facility], Cooperative with care, rooming in. Denies all chest pain since admission. tele continues with NSR, , no change noted to work of breathing or comfort with activity. Education provided about lifestyle changes and diet. Pt agreeable and verbalized understanding. Original Note: Am shift Pt is A/O x4 without complaints of pain. No chest pain since admission. Pt updated on POC and echo started @ 0750. Pt is ambulating in room no SOB, Spo2 100%. NPO until stress test.
[2019-03-24] MEDS: LISINOPRIL 20 MG TABLET PO (13:49)
[2019-03-24] MEDS: AMLODIPINE 5 MG TABLET PO (15:14)
--- NOTE | 2019-03-24 15:25 | CM.DANOTE ---
Patient is a 38 year old male who was admitted on 03/24/19 for Tightness, Chest. Patient has [employer] [place] [employer] for insurance and his PCP is not listed. EMR was reviewed. Per MD, pt with high risk for cardiac issues and currently here for cardiac monitoring with scheduled Echo and Stress test. Per RN, pt's Echo complete and results back and about to have Stress Test with likely plan of home once results back. No concerns at this time, family bedside and supportive. Pt lives at home with his and kids and works at baseline and is active and independent with ADL's. Pt drives himself to work and has no concerns with d/c at this time pending test results. Plan: SW to follow for likely pt d/c home with family support later today pending stress test results. ANTOINETTE Garcia Discharge Planning/Care Management CM Discharge Assessment Start: 03/24/19 15:23 Freq: Status: Active Protocol: Document 03/24/19 15:24 BF (Rec: 03/24/19 15:24 BF [id number]) Discharge Planning Assessment Assigned Passenger Relations Representative ANTOINETTE Beckman Advance Directives? No: information given to family History Provided By Patient Medical Record Has Patient been admitted in last 30 No days? Prior Living Arrangements House Household Members spouse children Type of transporation used prior to Drives own vehicle admit Independent with ADL's Yes Is patient alert and oriented? Yes Caregiver for Another Yes: children Comment Likely home after stress test results Barriers to Discharge No Discharge Plan Home Transportation Arrangement Spouse bedside Referrals Initiated None needed Review Status In Process Please Provide Date Initial DC 03/24/19 Assessment Was Performed Next Review Type Continued Stay Review
--- NOTE | 2019-03-24 15:59 | P.PN_ITS ---
Subjective Date Patient Seen: 03/24/19 Exam Vital Signs (past 8 hours): - 03/24/19 08:43 03/24/19 12:00 03/24/19 13:49 Temperature 97.2 F L 98.4 F Pulse Rate 96 H 77 72 Respiratory Rate 14 16 Blood Pressure 149/95 H 141/85 H 143/91 H Pulse Oximetry 95 97 03/24/19 15:35 Temperature 97.9 F Pulse Rate 78 Respiratory Rate 14 Blood Pressure 145/98 H Pulse Oximetry 96 Oxygen Delivery Method Room Air Oxygen Flow Rate 0 Objective Labs Result Diagrams: 03/25/19 04:57 03/25/19 04:57 Labs: Laboratory Results - last 24 hr 03/24/19 03/24/19 03/24/19 00:25 00:25 00:25 WBC 8.9 RBC 4.78 Hgb 15.6 Hct 45.1 MCV 94.3 MCH 32.6 MCHC 34.5 RDW 13.1 Plt Count 338 Neut % (Auto) 46.8 L Lymph % (Auto) 41.0 H [place] % (Auto) 9.0 Eos % (Auto) 2.6 Baso % (Auto) 0.6 Neut # (Auto) 4200 Lymph # (Auto) 3700 [place] # (Auto) 80 Eos # (Auto) 20 Baso # (Auto) 10 PT INR APTT D-Dimer Cancelled Sodium 133 L Potassium 4.5 Chloride 98 Carbon Dioxide 20 L BUN 15 Creatinine 0.80 Estimated GFR > 60.0 BUN/Creatinine Ratio 18.8 Glucose 97 Hemoglobin A1c Calcium 8.6 Total Bilirubin 2.1 H AST 213 H ALT 70 Alkaline Phosphatase 103 Total Creatine Kinase 120 CK-MB (CK-2) 1.33 CK-MB (CK-2) Rel Index 1.1 L Troponin I 0.018 B-Natriuretic Peptide < 100 Total Protein 8.6 H Albumin 4.3 Globulin 4.3 H Albumin/Globulin Ratio 1.0 Triglycerides Cholesterol LDL Cholesterol, Calc HDL Cholesterol Lipase 88 TSH Free T4 Free T3 03/24/19 03/24/19 03/24/19 01:00 03:25 08:12 WBC RBC Hgb Hct MCV MCH MCHC RDW Plt Count Neut % (Auto) Lymph % (Auto) [place] % (Auto) Eos % (Auto) Baso % (Auto) Neut # (Auto) Lymph # (Auto) [place] # (Auto) Eos # (Auto) Baso # (Auto) PT 10.3 INR 0.9 APTT 29 D-Dimer Sodium Potassium Chloride Carbon Dioxide BUN Creatinine Estimated GFR BUN/Creatinine Ratio Glucose Hemoglobin A1c Calcium Total Bilirubin AST ALT Alkaline Phosphatase Total Creatine Kinase CK-MB (CK-2) CK-MB (CK-2) Rel Index Troponin I 0.017 B-Natriuretic Peptide Total Protein Albumin Globulin Albumin/Globulin Ratio Triglycerides 4451 H Cholesterol 424 H LDL Cholesterol, Calc TNP HDL Cholesterol 19 L Lipase TSH Free T4 Free T3 03/24/19 03/24/19 08:12 08:12 WBC RBC Hgb Hct MCV MCH MCHC RDW Plt Count Neut % (Auto) Lymph % (Auto) [place] % (Auto) Eos % (Auto) Baso % (Auto) Neut # (Auto) Lymph # (Auto) [place] # (Auto) Eos # (Auto) Baso # (Auto) PT INR APTT D-Dimer Sodium Potassium Chloride Carbon Dioxide BUN Creatinine Estimated GFR BUN/Creatinine Ratio Glucose Hemoglobin A1c 4.7 Calcium Total Bilirubin AST ALT Alkaline Phosphatase Total Creatine Kinase CK-MB (CK-2) CK-MB (CK-2) Rel Index Troponin I B-Natriuretic Peptide Total Protein Albumin Globulin Albumin/Globulin Ratio Triglycerides Cholesterol LDL Cholesterol, Calc HDL Cholesterol Lipase TSH 6.48 H Free T4 0.67 L Free T3 5.37 H Assessment & Plan Assessment & Plan narrative: Brief progress note: Patient seen and examined. Patient is hemodynamically stable. Physical exam unchanged. Agree with admitting providers assessment and plan. In addition, patient was significantly hypertensive during nuclear medicine stress test 190/110. Discussed case with Cardiology, Dr. Hanson, who recommended increasing lisinopril from 20 mg to 40 mg daily at bedtime and if he continues to be significantly hypertensive adding amlodipine 5 mg daily. Patient continues to be significantly hypertensive at rest SBP 140s to 150s and DBP 80s to 90s. Patient was given 2nd dose of lisinopril 20 mg x1 and will start lisinopril 40 mg daily at bedtime tomorrow evening and started amlodipine 5 mg daily. Nuclear medicine stress test was a low probability test without evidence of ischemia or infarction and patient has reduced exercise capacity 10.1 Mets all of which were discussed. Plan for patient to stay overnight for close blood pressure monitoring and repeat evaluation of LFTs. Plan to discuss hypertriglyceridemia and thyroid dysfunction with endocrinology. Continue omega- 3 1000 mg twice daily and will start statin if LFT's stable or trending down and fenofibrate.
[2019-03-25 01:13] VITALS: BP 151/89; PULSE 67; RESP 14; TEMP 36.8; O2SAT 100
[2019-03-25 05:04] VITALS: BP 139/97; PULSE 66; RESP 14; TEMP 36.9; O2SAT 100
[2019-03-25 05:19] LABS: Add Manual Diff / Slide Review NO; Alanine Aminotransferase 67 IU/L (21-72); Albumin 3.7 g/dL (3.5-5.0); Albumin Globulin Ratio 1.1 (1.0-2.8); Alkaline Phosphatase 49 U/L (38-126); Aspartate Aminotransferase 115 IU/L (17-59); BUN Creatinine Ratio 11.4 (6-22); Basophils Absolute Auto 0 /uL (0-100); Basophils Percent Auto 0.9 % (0-2); Bilirubin Total 0.6 mg/dL (0.2-1.3); Blood Urea Nitrogen 8 mg/dL (9-20); Calcium 9.1 mg/dL (8.4-10.2); Carbon Dioxide 27 mmol/L (22-32); Chloride 102 mmol/L (98-107); Eosinophils Absolute Auto 200 /uL (0-450); Eosinophils Percent Auto 4.2 % (2-4); Estimated Glomerular Filt Rate > 60.0 mL/min (>60); Globulin 3.5 g/dL (1.7-4.1); Glucose 92 mg/dL (70-100); HEMOLYSIS 22 (0-50); Hematocrit 44.1 % (41-53); Hemoglobin 15.4 g/dL (13.5-17.5); Lymphocytes Absolute Auto 1900 /uL (1100-4500); Lymphocytes Percent Auto 42.4 % (25-40); Magnesium 2.1 mg/dL (1.6-2.3); Mean Corpuscular HGB Conc 34.9 % (30-36); Mean Corpuscular Volume 94.4 fL (80-100); Monocytes Absolute Auto 600 /uL (0-900); Monocytes Percent Auto 13.3 % (3-14); Neutrophils Absolute Auto 1800 /uL (1500-7000); Neutrophils Percent Auto 39.2 % (50-75); Platelet Count 199 X10^3/uL (150-400); Potassium 4.1 mmol/L (3.4-5.1); Red Blood Cell Count 4.67 X10^6/uL (4.5-5.9); Red Cell Distribution Width 13.6 % (11.6-14.8); Sodium 138 mmol/L (137-145); Total Protein 7.2 g/dL (6.3-8.2); White Blood Cell Count 4.5 X10^3/uL (4.5-11.0)
[2019-03-25 06:00] LABS: TSH w/ Reflex to FT4 4.13 uIU/mL (0.47-4.68)
--- NOTE | 2019-03-25 07:34 | P.DS_ITS ---
History of Present Illness Date Patient Seen: 03/24/19 Chief complaint: tightness in chest has HBP dizziness Narrative: Written by Dwayne MOSES: Mr. Андрей Taylor is a 38-year-old male patient with history that is significant for hypertension and strong family history of cardiovascular disease who presents to the ER this morning for chest pain. Patient states he was awakened by his children and subsequently felt chest pressure in his upper chest radiating into his neck. He had associated symptoms of lightheadedness, dizziness but no complaints of diaphoresis, nausea vomiting or shortness of breath. He states he can tell when his blood pressure is high and took an extra lisinopril. He describes the pressures being nonpleuritic and has had palpitations in the past but none with the current event. He has a family history of his father having a stent at age 50 and grandfathers on both sides his family having cardiovascular disease. The patient has never had these symptoms before. He has additional risk factor of chewing tobacco for many years and quitting 3 years ago. He has had no recent illness, fevers or chills nasal congestion or sore throat. His chest discomfort began about 10-11 o'clock tonight and was relieved with sublingual nitro administered in the ER. The patient adds that he just got back from vacation where he had had drink liberal alcohol and and unhealthy diet. Upon arrival to the ER he was afebrile with a temperature 98.2? hypertensive at 186/118, heart rate of 87, respirations 17 and 100% on room air. Twelve lead EKG reviewed by myself finds a sinus arrhythmia with ventricular rate of 87, there is no ST or T-wave abnormalities, [place] interval of 157 milliseconds, QRS 102 milliseconds, QTC 403 milliseconds. On CBC has a white count of 8.9, hemoglobin of 15.6 and hematocrit of 45.1 and platelets of 338. He has is slightly low sodium at 1:33 a.m. and potassium 4.5. His BUN is 15 and creatinine is 0.8 with nonfasting glucose of 97. He has had 2 troponins in the emergency department 1st at 0.18 and the 2nd at 0.17 He does have an elevated total bilirubin at 2.1 with an AST of 213 ALT of 70 and alkaline phosphatase of 1 3. He has lipase of 88 and BMP is less than 100. He has a significantly elevated cholesterol at 424, HDL low at 19, triglyceride level of 4451, unable to calculate LDL. Discharge Providers Date of admission: 03/24/19 04:06 Discharge Date: 03/25/19 Consults: 03/24/19 04:20 Consult to Dietitian, Adult Routine Comment: Reason For Exam: Hyperlipidemia, hypertriglyceridemia Consult to Discharge Planning Routine Comment: Discharge provider: Melania Fiore DO Summary Discharge Diagnosis: 1. Acute chest pressure, secondary to hypertensive urgency, present on admission. Resolved. 2. Hypercholesterolemia, likely chronic, present on admission. Stable. 3. Hypertension, chronic, present on admission. Improved. 4. Elevated bilirubin and AST, acuity unknown but likely acute, present on admission. Resolving. 5. Probable obstructive sleep apnea, present on admission. Active. Hospital Course: Андрей Taylor is a 38-year-old male with a past medical history significant for hypertension and strong family history of cardiovascular disease who presented to the ED with chest pain radiating to neck with associated dizziness. 1. Acute chest pressure, secondary to hypertensive urgency, present on admission. Resolved. -Patient presented with upper substernal chest pain radiating to the neck with associated dizziness. -Chest pain resolved with sublingual nitroglycerin given in ED. Patient has remained chest pain free. -EKG demonstrated sinus arrhythmia without ectopy, ST, or T-wave abnormalities, no indication of ischemia or infarct. -Troponin x 2 0.018 and 0.017. -Chest x-ray without mediastinal widening or pulmonary infiltrates, and normal cardiac silhouette. -Ordered nitroglycerin SL 0.4 mg every 5 minutes x 3 doses and morphine 2 mg IV every 5 minutes as needed for chest pain. -Received aspirin 324 mg in ED. Continue aspirin 81 mg daily. -NM stress test did not demonstrate any evidence of ischemia or infarction with reduced exercise tolerance. -Echocardiogram demonstrated mild LV and RV hypertrophy with preserved systolic function, severe left atrial dilatation, no valvular abnormalities and mildly enlarged ascending aorta and aortic arch. -Continued lisinopril increased from 10 mg to 40 mg daily and added amlodipine 10 mg daily as recommended by Cardiology. -Discussed hypertension with Endocrinology who recommend above regimen and if continues to be hypertensive with normal renin/aldosterone activity add thiazide diuretic and if renin/aldosterone activity elevated start spironolactone. Plan for close outpatient follow-up with PCP to follow renin/aldosterone activity and adjust antihypertensives as needed. 2. Hypercholesterolemia, likely chronic, present on admission. Stable. -Fasting lipid panel demonstrated: Total cholesterol 424, triglycerides 4451, unable to calculate LDL, and HDL 19. No prior knowledge of elevated lipid profile. -Likely field marketing representative of familial hypertriglyceridemia with father having cardiac stents at age 50 and both grandfathers having cardiovascular disease. -No evidence xanthomas, no upper abdominal pain, lipase is 88. -Risk stratified with hemoglobin A1c which was normal at 4.7%. -TSH initially elevated. Endocrinology recommended repeating TSH with free T4 reflex as initial results likely inaccurate. Repeat TSH within normal limits at 4.13. -Patient with recent diet high in red meat. Implemented heart healthy diet and educated patient and recommended lifestyle modification including: diet and exercise. -Consulted dietitian for very low fat diet (less than 15%) and lifestyle change with weight loss. -Started [place] 3 supplementation 1000 mg twice daily, rosuvastatin 20 mg daily at bedtime (once LFT's improved) and fenofibrate 120 mg daily at recommendation of Endocrinology 3. Hypertension, chronic, present on admission. Improved. -Patient presented with hypertensive urgency BP 186/118 in ED. -Continued to monitor blood pressure closely. Patient was significantly hypertensive but improved with antihypertensive therapy as below. -Continued lisinopril increased from 10 mg to 40 mg daily and added amlodipine 10 mg daily. -Implemented heart healthy and DASH diet and educated patient and recommended lifestyle modification including: diet and exercise. -Ordered renin/aldosterone activity, pending and for PCP to follow. Endocrinology recommended if activity high start spironolactone if needed for added blood pressure control and if activity low start thiazide if needed for added blood pressure control. 4. Elevated bilirubin and AST, acuity unknown but likely acute, present on admission. Resolving. -Patient reports he recently went on vacation and had significant alcohol consumption and likely the cause of his elevation rather than a hypertensive emergency. -Initial bilirubin 2.1. AST 213. Bilirubin elevation resolved and now 0.6. AST improving down to 115. -Initiated statin therapy with rosuvastatin 20 mg daily at bedtime and recommended close monitoring of LFTs. -Recommended patient cut back on alcohol or stop altogether. 5. Probable obstructive sleep apnea, present on admission. Active. -Recommended patient have expedited sleep study to assess for obstructive sleep apnea and treated with CPAP if present. Status at Discharge Functional status at discharge: independent ambulation Overall status at discharge: patient is back to baseline Exam Vital Signs (past 8 hours): - 03/25/19 01:13 03/25/19 05:04 Temperature 98.2 F 98.4 F Pulse Rate 67 66 Respiratory Rate 14 14 Blood Pressure 151/89 H 139/97 H Pulse Oximetry 100 100 Oxygen Delivery Method Room Air Oxygen Flow Rate 0 Narrative Exam Narrative: General: Young gentleman sitting at bedside in no acute distress, well- developed, well-nourished, appropriately interactive. HEENT: Normocephalic, atraumatic. External ears without defect. Pupils equal, round, and reactive to light. Anicteric sclerae, moist conjunctivae, and no lid lag. Oropharynx free of erythema and cobble stoning with moist mucosa. Neck: Supple with full range of motion. No jugular venous distension. No bruits. No lymphadenopathy or thyromegaly. Cardiovascular: Regular rate and rhythm without murmurs, rubs, or gallops appreciated. Pulmonary: Clear to auscultation bilaterally without crackles, wheezes, or rhon chi. Normal respiratory effort without use of accessory muscles. Abdomen: Soft, bowel sounds present, nontender, nondistended. No hepatosplenomegaly or masses appreciated. Extremities: No clubbing, cyanosis, or edema. Skin: Normal temperature, turgor, and texture; no rash, ulcers, or subcutaneous nodules appreciated. Neurological: Cranial nerves grossly intact. Normal muscle strength, tone, and bulk. Reflexes, coordination, and sensory function within normal limits. No known gait impairment. Psychiatric: Normal mood and affect. Alert and oriented to person, place, and time. Objective Labs Result Diagrams: 03/25/19 04:57 03/25/19 04:57 Labs: Laboratory Results - last 24 hr 03/24/19 03/24/19 03/24/19 08:12 08:12 08:12 WBC RBC Hgb Hct MCV MCH MCHC RDW Plt Count Neut % (Auto) Lymph % (Auto) [place] % (Auto) Eos % (Auto) Baso % (Auto) Neut # (Auto) Lymph # (Auto) [place] # (Auto) Eos # (Auto) Baso # (Auto) PT 10.3 INR 0.9 APTT 29 Sodium Potassium Chloride Carbon Dioxide BUN Creatinine Estimated GFR BUN/Creatinine Ratio Glucose Hemoglobin A1c 4.7 Calcium Magnesium Total Bilirubin AST ALT Alkaline Phosphatase Total Protein Albumin Globulin Albumin/Globulin Ratio TSH 6.48 H Free T4 0.67 L Free T3 5.37 H 03/25/19 03/25/19 03/25/19 04:57 04:57 04:57 WBC 4.5 RBC 4.67 Hgb 15.4 Hct 44.1 MCV 94.4 MCH 33.0 MCHC 34.9 RDW 13.6 Plt Count 199 Neut % (Auto) 39.2 L Lymph % (Auto) 42.4 H [place] % (Auto) 13.3 Eos % (Auto) 4.2 H Baso % (Auto) 0.9 Neut # (Auto) 1800 Lymph # (Auto) 1900 [place] # (Auto) 600 Eos # (Auto) 200 Baso # (Auto) 0 PT INR APTT Sodium 138 Potassium 4.1 Chloride 102 Carbon Dioxide 27 BUN 8 L Creatinine 0.70 Estimated GFR > 60.0 BUN/Creatinine Ratio 11.4 Glucose 92 Hemoglobin A1c Calcium 9.1 Magnesium 2.1 Total Bilirubin 0.6 AST 115 H ALT 67 Alkaline Phosphatase 49 D Total Protein 7.2 Albumin 3.7 Globulin 3.5 Albumin/Globulin Ratio 1.1 TSH 4.13 Free T4 Free T3 Discharge Plan Discharge Plan Patient Disposition: Home Discharge comment: You are being discharged home. You had extremely elevated high blood pressure that likely caused your chest discomfort. Your lisinopril has been increased from 10 mg to 40 mg and switched from taking in the morning to night. In addition, you have been prescribed amlodipine 10 mg daily for high blood pressure, aspirin 81 mg for cardiovascular protection, fenofibrate 120 mg daily for high triglycerides, omega-3 1000 mg twice daily for low HDL (good cholesterol and cardioprotective), and rosuvastatin 20 mg daily at bedtime for high triglycerides and LDL (bad cholesterol). Please implement lifestyle changes including diet and exercise as discussed. You're being provided a h andout on DASH and Mediterranean diets. The [place] [employer] recommends 150 minutes of moderate intensity cardiovascular exercise a week. Please start gradually and work your way up to this goal. Please follow-up with your PCP, Graeme Villegas, at your scheduled appointment regarding your ho spitalization, continued blood pressure, liver enzyme and lipid monitoring and pending blood work. Recommend you be referred to Endocrinology for management of hypertriglyceridemia and blood pressure. Discharge Med Rec/Prescriptions Prescriptions: New amlodipine [Norvasc] 5 mg Tablet 10 mg PO DAILY Qty: 30 RF: 0 aspirin 81 mg Tablet,Delayed Release (Dr/Ec) 81 mg PO DAILY Qty: 30 RF: 0 Fish Oil 340-1,000 mg Capsule 1,000 mg PO BID Qty: 60 RF: 0 fenofibrate 120 mg tablet 120 mg PO DAILY Qty: 30 RF: 0 rosuvastatin 20 mg tablet 20 mg PO .QHS Qty: 30 RF: 0 lisinopril 40 mg tablet 40 mg PO .QHS Qty: 30 RF: 0 Follow up/Referrals: Graeme Villegas ARNP [Non-Staff] - 03/31/19 8:10 am (appt:03/31 @ 8:20 check in @ 8:10 for appointment with [phone] ) Provider Discharge Instructions Diet: Diet as Tolerated, Low-fat, Low-sodium and Low-cholesterol Activity: Activity as tolerated Visit Report/Discharge Packet Instructions: The Mediterranean Diet and Good Health, The DASH Diet, High Triglycerides, Familial Hypercholesterolemia, Lisinopril (By mouth), Amlodipine (By mouth), Fenofibrate (By mouth) Discharge Data Attending Provider: Dwayne Robbins Admit Date/Time: 03/24/19 04:06 Discharges patient from system. Discharge Date/Time: 03/25/19 12:15
[2019-03-25 07:39] VITALS: BP 151/106; PULSE 79; RESP 20; TEMP 36.2; O2SAT 95
[2019-03-25] MEDS: FISH OIL 1,000 MG CAPSULE 1000 MG PO (08:34)
[2019-03-25] MEDS: SODIUM CHLORIDE 0.9% FLUSH 10 ML IV (08:34)
[2019-03-25] MEDS: ASPIRIN EC 81 MG TABLET PO (08:34)
[2019-03-25] MEDS: AMLODIPINE 5 MG TABLET 10 MG PO (08:35)
[2019-03-25 10:24] VITALS: BP 138/97
--- NOTE | 2019-03-25 10:41 | CM.DPC ---
DCP/continued: Reviewed chart. Received notification from Dr. Fiore that patient will be medically stable for discharge home today. Dr. Fiore requesting LAUNDRY HELPER meet with patient to provide list of primary care physicians. Per MD, patient sees truer pinion and wheel (Shad Ramirez)? Met with patient explained LAUNDRY HELPER role. Patient alert and oriented at time of visit. Patient in agreement that he needs to obtain primary medical physician for medication management, adjustment, labs and close monitoring. Patient also aware that abstaining from alcohol and eating well balanced diet will help with his health. Dr. Fiore notified of the above. Patient reports that his spouse will be providing transportation home today. P: Home today. Resources provided. ANTOINETTE Levy
--- NOTE | 2019-03-25 11:55 | PC.NURSE ---
Addendum entered by Mohit Epperson R.N. 03/25/19 12:21: Pt declined to be escorted to POV via w/c and staff assist. Ambulated with steady gait to exit in no acute distress with all belongings. Original Note: Pt to d/c home per Dr. Fiore's order. Provided d/c education, printed materials, reviewed med regimen, f/u appt. Removed PIV with cath tip intact. Pt dressed self. Dr. Fiore at bedside at this time.
[2019-03-26 16:19] LABS: Thyroid Peroxidase Antibodies 2 IU/mL (< 9)
[2019-03-28 12:19] LABS: Aldosterone/Renin Activity Rat 1.7 Ratio (0.9-28.9); Plama Renin, LC/MS/MS 1.18 ng/mL/h (0.25-5.82)
[2019-03-28 14:09] LABS: Triiodothyronine T3 Total 103 ng/dL (76-181)
== END 2019-03-25 12:15 | disposition home or self-care (01) ==
LOC: ED 04:05 → AC 04:07 → ICU 05:10
PROVIDERS: Internal Medicine; Admitting Provider Nurse Practitioner Adult Health; Emergency Provider Emergency Medicine; Visit Provider Nurse Practitioner Adult Health
DX: R07.9 Chest pain, unspecified (principal); E78.00 Pure hypercholesterolemia, unspecified; I10 Essential (primary) hypertension
CPT/HCPCS: 36415; 36591; 71045; 78451; 80053; 80061; 81003; 82088; 82550; 82553; 83036; 83690; 83735; 83880; 84244; 84439; 84443; 84480; 84481; 84484; 85025; 85610; 85730; 86376; 93005; 93016; 93017; 93018; 93306; 96360; 96361; 99283; 99285; G0378; A9270; A9502

== ENCOUNTER 2021-08-15 01:53 | Emergency (ER) | payer BC, SELFPAY ==
[2019-03-24 05:17] VITALS: BMI 30.2
[2021-08-15 02:05] VITALS: BP 173/99; PULSE 102; O2SAT 99
[2021-08-15 02:07] VITALS: BP 173/99; PULSE 95; RESP 22; O2SAT 99; BMI 28.5
[2021-08-15 02:24] VITALS: BP 179/108; PULSE 97; O2SAT 99
[2021-08-15 02:30] VITALS: BP 169/95; PULSE 97; O2SAT 99
--- NOTE | 2021-08-15 02:49 | ED_ITS ---
HPI - General Adult General Chief complaint: Hypertension Stated complaint: high blood pressure all day Time Seen by Provider: 08/15/21 02:17 Source: patient Mode of arrival: Ambulatory History of Present Illness HPI narrative: 41-year-old gentleman with a history of hypertension, hyperlipidemia and risky drinking behaviors and concerns for alcohol use disorder comes in concerned that he was too agitated this evening to fall asleep and noted that his blood pressure was significantly elevated. Notes that he spent the weekend in [facility] with some friends drinking quite heavily and he does suspect that this is contributing. He has quite a bit of insight into his alcohol use recognizes that it is not healthy that he has passed the point where he is socially drinking to the point where he is drinking enough to cause physical harm and willing to consider complete abstinence for a period of time. He has multiple questions about the if FX of his current alcohol use on his body including liver function kidney function. He notes that when he does stop drinking feel significantly better tends to eat healthy or go to the gym more lose weight and overall improve the quality of his life. His is mention that she thinks he needs to cut back on his drinking as well and has offered to stop drinking at home along with him. He denies chest pain, has had some mild palpitations this evening along with mild anxiety, no vomiting or diarrhea. No abdominal pain, mild headaches for related to his alcohol use. Related Data Home Medications Medication Instructions Recorded Confirmed amlodipine 10 mg tablet 10 mg PO DAILY 05/21/19 07/11/19 pravastatin 40 mg tablet 40 mg PO DAILY 05/21/19 07/11/19 Previous Rx's Medication Instructions Recorded aspirin 81 mg tablet,delayed 81 mg PO DAILY #30 tab 03/25/19 release lisinopril 40 mg tablet 40 mg PO .QHS #30 tab 03/25/19 omega-3 fatty acids-fish oil 340 1,000 mg PO BID #60 cap 03/25/19 mg-1,000 mg capsule (Fish Oil) Allergies Allergy/AdvReac Type Severity Reaction Status Date / Time No Known Drug Allergies Allergy Verified 08/15/21 02:07 Review of Systems Review of Systems Narrative: Remainder of complete review of systems is otherwise unremarkable except for that included in the HPI. Patient History Medical History Chest pain Essential hypertriglyceridemia Hyperlipidemia with low HDL Hypertension Obstructive sleep apnea Surgical History No history of previous surgery Family History Father Cardiovascular disease Mother Hypothyroidism Sister Cancer Social History household members: spouse and children Smoking Status: Never smoker alcohol intake: current Smoking Status: Never smoker alcohol intake frequency: 3 or more drinks per day Substance Use Type: marijuana Exam Narrative Exam Narrative: General: Healthy appearing, in no acute distress. Able to give a complete and coherent history. Well-nourished well-developed HEENT: Moist mucous membranes, normal sclera with reactive pupils, Neck: No JVD, supple Respiratory: Lungs are clear to auscultation, no wheezing no rales no rhonchi. Full and symmetrical air movement Cardiac: Mild sinus tachycardia, no murmurs no bruits Abdomen: Soft, nontender, no hepatosplenomegaly, good bowel tones, no flank pain Skin: Warm and dry, no rashes, no spider angiomas or palmar erythema Neurologic: Grossly neurologically intact with no obvious asymmetries or abnormalities Extremities: No trauma, well perfused Psych: Cooperative, appropriate insight and affect Initial Vital Signs Initial Vital Signs: Vital Signs Pulse Rate 102 H 08/15/21 02:05 Blood Pressure 173/99 H 08/15/21 02:05 Pulse Oximetry 99 08/15/21 02:05 Course Orders Ordered: ED Orders 08/15/21 02:49 Complete Blood Count AUTO DIFF Stat Comprehensive Metabolic Panel Stat Sodium Chloride (Normal Saline 0.9%) 1,000 mls @ 1,000 mls/hr IV BOLUS ONE Stop: 08/15/21 03:40 Last Admin: 08/15/21 02:53 Dose: 1,000 mls/hr Documented by: Sodium Chloride (Normal Saline 0.9%) 1,000 mls @ 1,000 mls/hr IV BOLUS ONE Stop: 08/15/21 03:47 Discontinued Medications Lorazepam (Lorazepam 2 Mg/Ml Inj) 1 mg IV NOW ONE Stop: 08/15/21 02:42 Last Admin: 08/15/21 02:53 Dose: 1 mg Documented by: Lorazepam (Lorazepam 2 Mg/Ml Inj) 1 mg IV NOW ONE Stop: 08/15/21 02:49 Ondansetron HCl (Ondansetron 4 Mg/2 Ml Inj) 4 mg IV NOW ONE Stop: 08/15/21 02:49 Last Admin: 08/15/21 02:53 Dose: 4 mg Documented by: Vital Signs Vital signs: Vital Signs - 8 hr 08/15/21 02:05 08/15/21 02:07 08/15/21 02:24 Pulse Rate 102 H 95 H 97 H Respiratory Rate 22 Blood Pressure 173/99 H 173/99 H 179/108 H Pulse Oximetry 99 99 99 08/15/21 02:30 Pulse Rate 97 H Respiratory Rate Blood Pressure 169/95 H Pulse Oximetry 99 Medical Decision Making Lab Data Result diagrams: 08/15/21 02:10 08/15/21 02:10 Labs: Lab Results 08/15/21 08/15/21 Range/Units 02:10 02:10 WBC 7.4 (4.5-11.0) X10^3/uL RBC 4.59 (4.5-5.9) X10^6/uL Hgb 14.9 (13.5-17.5) g/dL Hct 43.0 (41-53) % MCV 93.8 (80-100) fL MCH 32.4 (26-34) PG MCHC 34.5 (30-36) % RDW 13.6 (11.6-14.8) % Plt Count 248 (150-400) X10^3/uL Neut % (Auto) 58.9 (50-75) % Lymph % (Auto) 27.3 (25-40) % [place] % (Auto) 12.1 (3-14) % Eos % (Auto) 1.0 L (2-4) % Baso % (Auto) 0.7 (0-2) % Neut # (Auto) 4400 (7241-7239) /uL Lymph # (Auto) 2000 (4288-5140) /uL [place] # (Auto) 900 (0-900) /uL Eos # (Auto) 100 (0-450) /uL Baso # (Auto) 100 (0-100) /uL Sodium 135 L (137-145) mmol/L Potassium 3.4 (3.4-5.1) mmol/L Chloride 97 L (98-107) mmol/L Carbon Dioxide 26 (22-32) mmol/L BUN 10 (9-20) mg/dL Creatinine 0.67 (0.66-1.25) mg/dL Estimated GFR > 60.0 (>60) mL/min BUN/Creatinine Ratio 14.9 (6-22) Glucose 94 (70-100) mg/dL Calcium 10.0 (8.4-10.2) mg/dL Total Bilirubin 0.9 (0.2-1.3) mg/dL AST 80 H (17-59) IU/L ALT 40 (<50) IU/L Alkaline Phosphatase 57 (38-126) U/L Total Protein 8.2 (6.3-8.2) g/dL Albumin 4.8 (3.5-5.0) g/dL Globulin 3.4 (1.7-4.1) g/dL Albumin/Globulin Ratio 1.4 (1.0-2.8) MDM Narrative Medical decision making narrative: 41-year-old gentleman presents with mild alcohol withdrawal and recognition that his drinking is beginning to become problematic and is adversely affecting his health. With a L of fluid and a single mg of Ativan he is feeling significantly better, heart rate is down to 67 and blood pressure is down to 130/65. No evidence of kidney dysfunction, infection, acute coronary syndrome. His AST was slightly elevated and discussed the significance of this with him. Questions are answered and he is safe for home discharge. Discharge Plan Departure Patient Disposition: Home Clinical Impression: Alcohol use disorder, mild, abuse, Hypertension Instructions: DI for Alcohol Use Disorder Activity Restrictions/Additional Instructions: Thank you for coming in today I strongly encourage you to follow-up with your plans to stop drinking for a period of time. My recommendation would be 3 months and then re-evaluate. Your kidney function was reassuring we normal. Your EKG was unremarkable. With a single mg of Ativan that your blood pressure and heart rate came down nicely which suggests that they were elevated due to mild alcohol withdrawal. Please continue with your current doses of blood pressure medications and as you get further long your healthy pathway choices if you notice that you are becoming more lightheaded with activity or are losing weight because of healthier lifestyle choices you may be able to significantly decrease doses and alleviate medications altogether I wish you the best Prescriptions: No Action aspirin 81 mg Tablet,Delayed Release (Dr/Ec) 81 mg PO DAILY Qty: 30 0RF Fish Oil 340-1,000 mg Capsule 1,000 mg PO BID Qty: 60 0RF lisinopril 40 mg tablet 40 mg PO .QHS Qty: 30 0RF amlodipine 10 mg tablet 10 mg PO DAILY 0RF pravastatin 40 mg tablet 40 mg PO DAILY 0RF Referrals: Graeme Villegas ARNP [Primary Care Provider] -
[2021-08-15] MEDS: ONDANSETRON 4 MG/2 ML INJ IV (02:53)
[2021-08-15] MEDS: LORazepam 2 MG/ML INJ 1 MG IV (02:53)
[2021-08-15] MEDS: SODIUM CHLORIDE 0.9% 1,000 ML 1000 ML IV (02:53)
[2021-08-15 03:00] VITALS: BP 129/76; PULSE 70; O2SAT 95
[2021-08-15 03:06] LABS: Alanine Aminotransferase 40 IU/L (<50); Albumin 4.8 g/dL (3.5-5.0); Albumin Globulin Ratio 1.4 (1.0-2.8); Alkaline Phosphatase 57 U/L (38-126); Aspartate Aminotransferase 80 IU/L (17-59); BUN Creatinine Ratio 14.9 (6-22); Bilirubin Total 0.9 mg/dL (0.2-1.3); Blood Urea Nitrogen 10 mg/dL (9-20); Carbon Dioxide 26 mmol/L (22-32); Chloride 97 mmol/L (98-107); Estimated Glomerular Filt Rate > 60.0 mL/min (>60); Globulin 3.4 g/dL (1.7-4.1); Glucose 94 mg/dL (70-100); HEMOLYSIS 15 (0-50); Potassium 3.4 mmol/L (3.4-5.1); Sodium 135 mmol/L (137-145); Total Protein 8.2 g/dL (6.3-8.2)
[2021-08-15 03:10] LABS: Add Manual Diff / Slide Review NO; Basophils Absolute Auto 100 /uL (0-100); Basophils Percent Auto 0.7 % (0-2); Eosinophils Absolute Auto 100 /uL (0-450); Hemoglobin 14.9 g/dL (13.5-17.5); Lymphocytes Absolute Auto 2000 /uL (1100-4500); Lymphocytes Percent Auto 27.3 % (25-40); Mean Corpuscular HGB Conc 34.5 % (30-36); Mean Corpuscular Hemoglobin 32.4 PG (26-34); Mean Corpuscular Volume 93.8 fL (80-100); Monocytes Absolute Auto 900 /uL (0-900); Monocytes Percent Auto 12.1 % (3-14); Neutrophils Absolute Auto 4400 /uL (1500-7000); Neutrophils Percent Auto 58.9 % (50-75); Platelet Count 248 X10^3/uL (150-400); Red Blood Cell Count 4.59 X10^6/uL (4.5-5.9); Red Cell Distribution Width 13.6 % (11.6-14.8); White Blood Cell Count 7.4 X10^3/uL (4.5-11.0)
[2021-08-15 03:30] VITALS: BP 130/69; PULSE 73; O2SAT 97
== END 2021-08-15 04:09 | disposition home or self-care (01) ==
PROVIDERS: Emergency Provider Emergency Medicine; PCP Registered Nurse
DX: F10.10 Alcohol abuse, uncomplicated (principal); I10 Essential (primary) hypertension
CPT/HCPCS: 36415; 80053; 85025; 93005; 93010; 96361; 96374; 96375; 99284; J2060; J2405

== ENCOUNTER 2022-11-02 03:18 | Emergency (ER) | payer BC, SELFPAY ==
[2019-03-24 05:17] VITALS: BMI 30.2
[2022-11-02] VITALS (11 sets, daily range): BP systolic 158–217; BP diastolic 89–133; PULSE 75–98; RESP 14–20; TEMP 36.6; O2SAT 96–99; BMI 28.5
--- NOTE | 2022-11-02 03:40 | ED_ITS ---
HPI - General Adult General Chief complaint: Toxicology Problem Stated complaint: high blood pressure, alcohol withdrawl Time Seen by Provider: 11/02/22 03:39 History of Present Illness HPI narrative: 42-year-old male nonsmoker with history of hypertension, hyperlipidemia and heavy alcohol abuse presents with some headache, agitation auditory hallucinations and other symptoms that have him concerned that he is beginning to experience alcohol withdrawal. He states that he is gone through withdrawal 3 times in the past and was able to do it on his own but is scared that he will be unable to. He states that he has been drinking heavy again for the past few weeks which started with the [place] and has continued until 10:00 p.m. last night. He is tried tapering down over the past day or 2 and most recently was consuming a bottle of wine and a shot or 2. He is never had seizures as a consequence of his withdrawal. He denies suicidal or homicidal ideations. Related Data Home Medications Medication Instructions Recorded Confirmed amlodipine 10 mg tablet 10 mg PO DAILY 05/21/19 07/11/19 pravastatin 40 mg tablet 40 mg PO DAILY 05/21/19 07/11/19 Previous Rx's Medication Instructions Recorded aspirin 81 mg tablet,delayed 81 mg PO DAILY #30 tabs 03/25/19 release lisinopril 40 mg tablet 40 mg PO .QHS #30 tabs 03/25/19 omega-3 fatty acids-fish oil 340 1,000 mg PO BID #60 caps 03/25/19 mg-1,000 mg capsule (Fish Oil) chlordiazepoxide HCl 25 mg capsule See Rx Instructions .Route 11/02/22 .COMPLEX #32 caps Allergies Allergy/AdvReac Type Severity Reaction Status Date / Time No Known Drug Allergies Allergy Verified 08/15/21 02:07 Review of Systems Review of Systems Narrative: GENERAL: See HPI HEENT: Denies sinus pain, ear pain, sore throat, difficulty swallowing, dizziness. RESPIRATORY: Denies dyspnea, cough, wheezing, hemoptysis, sputum. CARDIOVASCULAR: See HPI GASTROINTESTINAL: See HPI : Denies dysuria, frequency, incontinence, hematuria, urinary retention. MUSCULOSKELETAL: denies weakness, joint pain, or bony pain SKIN: Denies rash, skin lesions, or other NEUROLOGIC: See HPI PSYCHIATRIC: No concerning psychosocial issues. 12 point review of systems is negative except for those stated above Patient History Medical History Chest pain Essential hypertriglyceridemia Hyperlipidemia with low HDL Hypertension Obstructive sleep apnea Surgical History No history of previous surgery Family History Father Cardiovascular disease Mother Hypothyroidism Sister Cancer Social History household members: spouse and children Smoking Status: Never smoker alcohol intake: current Smoking Status: Never smoker alcohol intake frequency: 3 or more drinks per day Substance Use Type: marijuana Exam Narrative Exam Narrative: GENERAL: [42] year old patient appears stated age. Well-developed patient, in mild distress. A bit anxious, pacing, some pressured speech HEAD: Atraumatic. Normocephalic. EYES: Pupils equal round and reactive. Extraocular motions intact. No scleral icterus. No injection or drainage. ENT: Nose without bleeding, purulent drainage. Throat without erythema, ton sillar hypertrophy or exudate. Airway patent. NECK: Trachea midline. Non tender CARDIOVASCULAR: Slightly tachycardic but regular rhythm without murmurs, gallops, or rubs. RESPIRATORY: Clear to auscultation. Breath sounds equal bilaterally. No wheezes, rales, or rhonchi. GASTROINTESTINAL: Abdomen soft, non-tender, nondistended. EXTREMITIES: No edema or joint tenderness. BACK: Nontender without deformity or crepitance. No flank tenderness. NEURO: AOx3. Mild resting tremor SKIN: No rash or erythema of visible areas Initial Vital Signs Initial Vital Signs: Vital Signs Pulse Rate 98 H 11/02/22 03:25 Respiratory Rate 20 11/02/22 03:25 Blood Pressure 217/133 H 11/02/22 03:25 Pulse Oximetry 99 11/02/22 03:25 Oxygen Delivery Method Room Air 11/02/22 03:25 Course Orders Ordered: Discontinued Medications Amlodipine Besylate (Amlodipine 5 Mg Tablet) 10 mg PO NOW ONE Stop: 11/02/22 04:35 Last Admin: 11/02/22 04:54 Dose: 10 mg Documented By: GC Sodium Chloride (Normal Saline 0.9%) 1,000 mls @ 1,000 mls/hr IV BOLUS ONE Stop: 11/02/22 04:38 Last Infusion: 11/02/22 05:08 Dose: 0 mls/hr Documented By: Admin: 11/02/22 04:05 Dose: 1,000 mls/hr Documented By: DANISH Thiamine HCl 200 mg/ Sodium (Chloride) 102 mls @ 408 mls/hr IV NOW ONE Stop: 11/02/22 03:40 Last Infusion: 11/02/22 04:32 Dose: 0 mls/hr Documented By: Admin: 11/02/22 04:19 Dose: 408 mls/hr Documented By: DANISH Lorazepam (Lorazepam 0.5 Mg Tablet) 1 mg PO NOW ONE Stop: 11/02/22 06:21 Last Admin: 11/02/22 06:37 Dose: 1 mg Documented By: DANISH Ondansetron HCl (Ondansetron 4 Mg/2 Ml Inj) 4 mg IV NOW ONE Stop: 11/02/22 03:40 Last Admin: 11/02/22 04:18 Dose: 4 mg Documented By: DANISH Phenobarbital (Phenobarbital 65 Mg/Ml Vial) 260 mg IV NOW ONE Stop: 11/02/22 03:40 Last Admin: 11/02/22 04:18 Dose: 260 mg Documented By: DANISH Vital Signs Vital signs: Vital Signs - 8 hr 11/02/22 03:25 11/02/22 03:42 11/02/22 03:43 Pulse Rate 98 H 83 Respiratory Rate 20 Blood Pressure 217/133 H 181/107 H Pulse Oximetry 99 98 Oxygen Delivery Method Room Air 11/02/22 03:43 11/02/22 04:00 11/02/22 04:00 Pulse Rate 83 78 Respiratory Rate Blood Pressure 174/100 H Pulse Oximetry 99 98 Oxygen Delivery Method 11/02/22 04:23 11/02/22 04:23 11/02/22 04:30 Pulse Rate 77 Respiratory Rate Blood Pressure 170/102 H 182/111 H Pulse Oximetry 98 Oxygen Delivery Method 11/02/22 04:30 11/02/22 05:00 11/02/22 05:00 Pulse Rate 82 77 Respiratory Rate Blood Pressure 160/97 H Pulse Oximetry 96 97 Oxygen Delivery Method 11/02/22 05:30 11/02/22 05:30 11/02/22 06:00 Pulse Rate 79 Respiratory Rate Blood Pressure 165/89 H 158/94 H Pulse Oximetry 97 Oxygen Delivery Method 11/02/22 06:00 11/02/22 06:30 11/02/22 06:30 Pulse Rate 76 75 Respiratory Rate Blood Pressure 168/99 H Pulse Oximetry 96 96 Oxygen Delivery Method Medical Decision Making Lab Data 11/02/22 03:45 11/02/22 03:45 Labs: Lab Results 11/02/22 11/02/22 11/02/22 Range/Units 03:45 03:45 03:45 WBC 6.4 (4.5-11.0) X10^3/uL RBC 4.90 (4.5-5.9) X10^6/uL Hgb 15.7 (13.5-17.5) g/dL Hct 45.1 (41-53) % MCV 92.1 (80-100) fL MCH 32.0 (26-34) PG MCHC 34.7 (30-36) % RDW 12.6 (11.6-14.8) % Plt Count 190 (150-400) X10^3/uL Neut % (Auto) 48.6 L (50-75) % Lymph % (Auto) 37.2 (25-40) % [place] % (Auto) 11.4 (3-14) % Eos % (Auto) 2.0 (2-4) % Baso % (Auto) 0.8 (0-2) % Neut # (Auto) 3100 (1477-8735) /uL Lymph # (Auto) 2400 (6970-1621) /uL [place] # (Auto) 700 (0-900) /uL Eos # (Auto) 100 (0-450) /uL Baso # (Auto) 0 (0-100) /uL Sodium 137 (137-145) mmol/L Potassium 3.4 (3.4-5.1) mmol/L Chloride 101 (98-107) mmol/L Carbon Dioxide 27 (22-32) mmol/L BUN 14 (9-20) mg/dL Creatinine 0.69 (0.66-1.25) mg/dL Estimated GFR > 60 (>60) mL/min BUN/Creatinine Ratio 20.3 (6-22) Glucose 99 (70-100) mg/dL Calcium 8.8 (8.4-10.2) mg/dL Magnesium 1.7 (1.6-2.3) mg/dL Total Bilirubin 1.0 (0.2-1.3) mg/dL AST 86 H (17-59) IU/L ALT 56 H (<50) IU/L Alkaline Phosphatase 110 (38-126) U/L Total Creatine Kinase 142 (55-170) U/L CK-MB (CK-2) 1.77 (<2.37) ng/mL CK-MB (CK-2) Rel Index 1.2 L (1.5-5.0) % Troponin I < 0.012 (0.01-0.034) ng/mL NT-Pro-B Natriuret Pep 34 (<125) pg/mL Total Protein 7.4 (6.3-8.2) g/dL Albumin 4.1 (3.5-5.0) g/dL Globulin 3.3 (1.7-4.1) g/dL Albumin/Globulin Ratio 1.2 (1.0-2.8) Lipase 120 (23-300) U/L U Opiates 300ng/mL cut (Negative) Ur Oxycodone Screen (Negative) Urine Methadone Screen (Negative) Ur Barbiturates Screen (Negative) U Tricyclic Antidepress (Negative) Ur Phencyclidine Scrn (Negative) Ur Amphetamines Screen (Negative) U Methamphetamines Scrn (Negative) Ur MDMA Scrn (Ecstasy) (Negative) U Benzodiazepines Scrn (Negative) Urine Cocaine Screen (Negative) U Marijuana (THC) Screen (Negative) Ethyl Alcohol < 10 ( - 10) mg/dL SARS-CoV-2 (PCR) (Negative) 11/02/22 11/02/22 Range/Units 04:43 04:50 WBC (4.5-11.0) X10^3/uL RBC (4.5-5.9) X10^6/uL Hgb (13.5-17.5) g/dL Hct (41-53) % MCV (80-100) fL MCH (26-34) PG MCHC (30-36) % RDW (11.6-14.8) % Plt Count (150-400) X10^3/uL Neut % (Auto) (50-75) % Lymph % (Auto) (25-40) % [place] % (Auto) (3-14) % Eos % (Auto) (2-4) % Baso % (Auto) (0-2) % Neut # (Auto) (3222-1532) /uL Lymph # (Auto) (9060-8613) /uL [place] # (Auto) (0-900) /uL Eos # (Auto) (0-450) /uL Baso # (Auto) (0-100) /uL Sodium (137-145) mmol/L Potassium (3.4-5.1) mmol/L Chloride (98-107) mmol/L Carbon Dioxide (22-32) mmol/L BUN (9-20) mg/dL Creatinine (0.66-1.25) mg/dL Estimated GFR (>60) mL/min BUN/Creatinine Ratio (6-22) Glucose (70-100) mg/dL Calcium (8.4-10.2) mg/dL Magnesium (1.6-2.3) mg/dL Total Bilirubin (0.2-1.3) mg/dL AST (17-59) IU/L ALT (<50) IU/L Alkaline Phosphatase (38-126) U/L Total Creatine Kinase (55-170) U/L CK-MB (CK-2) (<2.37) ng/mL CK-MB (CK-2) Rel Index (1.5-5.0) % Troponin I (0.01-0.034) ng/mL NT-Pro-B Natriuret Pep (<125) pg/mL Total Protein (6.3-8.2) g/dL Albumin (3.5-5.0) g/dL Globulin (1.7-4.1) g/dL Albumin/Globulin Ratio (1.0-2.8) Lipase (23-300) U/L U Opiates 300ng/mL cut Negative (Negative) Ur Oxycodone Screen Negative (Negative) Urine Methadone Screen Negative (Negative) Ur Barbiturates Screen Negative (Negative) U Tricyclic Antidepress Negative (Negative) Ur Phencyclidine Scrn Negative (Negative) Ur Amphetamines Screen Negative (Negative) U Methamphetamines Scrn Negative (Negative) Ur MDMA Scrn (Ecstasy) Negative (Negative) U Benzodiazepines Scrn Negative (Negative) Urine Cocaine Screen Negative (Negative) U Marijuana (THC) Screen Negative (Negative) Ethyl Alcohol ( - 10) mg/dL SARS-CoV-2 (PCR) Negative (Negative) Urine Dip Bedside Urine Glucose Negative Bedside Urine Bilirubin - Negative Bedside Urine Ketone - Negative Urine Specific [place] 1.020 Bedside Urine Occult Blood - Negative Bedside Urine pH 6.5 Bedside Urine Protein + 30 Bedside Urine Urobilinogen - Negative Bedside Urine Nitrite - Negative Bedside Urine Leukocytes - Negative Esterase Point of care testing: Urine Dip Bedside Urine Glucose Negative Bedside Urine Bilirubin - Negative Bedside Urine Ketone - Negative Urine Specific [place] 1.020 Bedside Urine Occult Blood - Negative Bedside Urine pH 6.5 Bedside Urine Protein + 30 Bedside Urine Urobilinogen - Negative Bedside Urine Nitrite - Negative Bedside Urine Leukocytes - Negative Esterase MDM Narrative Additional Information: Prescriptions as CC: 42M with hypertension and history of alcohol abuse presents with concern of possible early withdrawal Complicating co-morbidities: Hypertension, chronic alcohol use Data collected from: Patient Medical records reviewed: Prior notes reviewed in our EMR Differential considered, but not limited to: Alcohol abuse, withdrawal, DTs, hypertension versus other Exam documented above, pertinent findings include: Initially a bit agitated and anxious, heart rate regular, no increased work of breathing, neurologic exam within normal limits, abdomen soft, patient awake, alert, oriented in demonstrating capacity Lab Test results independently reviewed as above. Pertinent findings: No significant abnormal findings requiring intervention Independently reviewed EKG as above Imaging studies independently reviewed: none indicated Scores Used: CIWA - low MIPS Elements: none indicated Treatments: Lorazepam, amlodipine, thiamine, phenobarb, Zofran, saline Re-evaluations: Significant improvement, blood pressure improved, CIWA essentially non-existent Discussion: Patient with chronic alcohol abuse presents with desire to quit and early, minor withdrawal symptoms shows no sign of DTs. History, physical exam, labs and response to therapies reassuring. I discussed at length with the patient the possible benefit of remaining in the department for social work evaluation and despite this discussion and his obvious recognition of those benefits he would prefer to go home Disposition: see below, along with detailed discharge instructions that have been reviewed with patient as well as indications for ED re-evaluation and additional outpatient follow up Discharge Plan Departure Patient Disposition: Home Clinical Impression: HTN (hypertension), Alcohol withdrawal Instructions: DI for Alcohol Use Disorder Activity Restrictions/Additional Instructions: *You have been diagnosed with [alcohol abuse and hypertension] *What to do: *Please continue to take your regular medications as directed. [ x] New medication prescriptions sent to your pharmacy: [[facility] ] [ ] New medication written as a paper prescription [ ] No new medications given *Please follow up with your primary care provider in 2-3 days, call for an appointment. Let them know you were seen in the Emergency Department and that we ask that you be seen in follow up. We will electronically transmit a record of today's note if your PCP is in our system *Return to Emergency Department if you should have any new, worsening or concerning symptoms, such as [fever greater than 101 F, shaking chills, worsening pain, persistent vomiting or other bothersome symptoms] Prescriptions: New chlordiazepoxide HCl 25 mg capsule See Rx Instructions .ROUTE .COMPLEX Qty: 32 0RF Rx Instructions: Day 1: 50mg POq4 Day 2: 50mg POq6 Day 3: 50mg POq8 Day 4: 50mg POq12 Day 5: 50mg POqhs #32 No Action aspirin 81 mg Tablet,Delayed Release (Dr/Ec) 81 mg PO DAILY Qty: 30 0RF Fish Oil 340-1,000 mg Capsule 1,000 mg PO BID Qty: 60 0RF lisinopril 40 mg tablet 40 mg PO .QHS Qty: 30 0RF amlodipine 10 mg tablet 10 mg PO DAILY pravastatin 40 mg tablet 40 mg PO DAILY Referrals: [facility] [Outside] [facility] [Outside] [facility] [Outside] Graeme Villegas ARNP [Primary Care Provider] - Stand Alone Forms: Patient Portal/API
[2022-11-02 04:02] LABS: Add Manual Diff / Slide Review NO; Basophils Absolute Auto 0 /uL (0-100); Basophils Percent Auto 0.8 % (0-2); Eosinophils Absolute Auto 100 /uL (0-450); Hematocrit 45.1 % (41-53); Hemoglobin 15.7 g/dL (13.5-17.5); Lymphocytes Absolute Auto 2400 /uL (1100-4500); Lymphocytes Percent Auto 37.2 % (25-40); Mean Corpuscular HGB Conc 34.7 % (30-36); Mean Corpuscular Volume 92.1 fL (80-100); Monocytes Absolute Auto 700 /uL (0-900); Monocytes Percent Auto 11.4 % (3-14); Neutrophils Absolute Auto 3100 /uL (1500-7000); Neutrophils Percent Auto 48.6 % (50-75); Platelet Count 190 X10^3/uL (150-400); Red Cell Distribution Width 12.6 % (11.6-14.8); White Blood Cell Count 6.4 X10^3/uL (4.5-11.0)
[2022-11-02] MEDS: SODIUM CHLORIDE 0.9% 1,000 ML 1000 ML IV (04:05)
[2022-11-02 04:09] LABS: Creatine Kinase 142 U/L (55-170)
[2022-11-02 04:12] LABS: Alanine Aminotransferase 56 IU/L (<50); Albumin 4.1 g/dL (3.5-5.0); Albumin Globulin Ratio 1.2 (1.0-2.8); Alkaline Phosphatase 110 U/L (38-126); Aspartate Aminotransferase 86 IU/L (17-59); BUN Creatinine Ratio 20.3 (6-22); Blood Urea Nitrogen 14 mg/dL (9-20); Calcium 8.8 mg/dL (8.4-10.2); Carbon Dioxide 27 mmol/L (22-32); Chloride 101 mmol/L (98-107); Estimated Glomerular Filt Rate > 60 mL/min (>60); Ethanol (ETOH) < 10 mg/dL; Globulin 3.3 g/dL (1.7-4.1); Glucose 99 mg/dL (70-100); HEMOLYSIS < 15 (0-50); Lipase 120 U/L (23-300); Magnesium 1.7 mg/dL (1.6-2.3); Potassium 3.4 mmol/L (3.4-5.1); Sodium 137 mmol/L (137-145); Total Protein 7.4 g/dL (6.3-8.2)
[2022-11-02] MEDS: ONDANSETRON 4 MG/2 ML INJ IV (04:18)
[2022-11-02] MEDS: PHENobarbital 65 MG/ML VIAL 260 MG IV (04:18)
[2022-11-02] MEDS: THIAMINE 200 MG in SODIUM CHLORIDE 0.9% 100 ML 408 MG IV (04:19)
[2022-11-02 04:22] LABS: NT-proBNP (BNP-Adult 18+) 34 pg/mL (<125); Troponin I < 0.012 ng/mL (0.01-0.034)
[2022-11-02 04:24] LABS: CKMB % Relative Index 1.2 % (1.5-5.0); Creatine Kinase MB 1.77 ng/mL (<2.37)
[2022-11-02] MEDS: AMLODIPINE 5 MG TABLET 10 MG PO (04:54)
[2022-11-02 05:13] LABS: UR Morphine/Opiate cutoff 300 Negative (Negative); Ur Creatinine 20 (Normal); Ur Specific Gravity >1.030 (Normal); Urine Amphetamines Negative (Negative); Urine Barbiturates Negative (Negative); Urine Benzodiazepines Negative (Negative); Urine Cocaine Negative (Negative); Urine MDMA Negative (Negative); Urine Methadone Negative (Negative); Urine Methamphetamines Negative (Negative); Urine Oxycodone Negative (Negative); Urine Phencyclidine Negative (Negative); Urine Tetrahydrocannabinol Negative (Negative); Urine Tricyclic Antidepressant Negative (Negative); Urine pH 7 (Normal)
[2022-11-02 05:45] LABS: COVID19 -Nasal RAPID Negative (Negative)
[2022-11-02] MEDS: LORazepam 0.5 MG TABLET 1 MG PO (06:37)
== END 2022-11-02 06:44 | disposition home or self-care (01) ==
PROVIDERS: Emergency Provider Emergency Medicine; PCP Registered Nurse
DX: I10 Essential (primary) hypertension (principal); F10.239 Alcohol dependence with withdrawal, unspecified; R07.9 Chest pain, unspecified; Z20.822 Contact with and (suspected) exposure to COVID-19
CPT/HCPCS: 36415; 80053; 80305; 80320; 81003; 82550; 82553; 83690; 83735; 83880; 84484; 85025; 87635; 93005; 96361; 96374; 96375; 99284; C9803; J2405; J2560

== ENCOUNTER 2023-10-24 12:57 | Emergency (ER) | payer BC, SELFPAY ==
[2019-03-24 05:17] VITALS: BMI 30.2
[2023-10-24] VITALS (29 sets, daily range): BP systolic 148–208; BP diastolic 90–115; PULSE 69–137; RESP 16–27; TEMP 36.6; O2SAT 93–99; BMI 28.1
--- NOTE | 2023-10-24 13:21 | ED_ITS ---
HPI - Alcohol General Chief Complaint: Toxicology Problem Stated Complaint: alcohol detox Time Seen by Provider: 10/24/23 13:20 Source: patient Mode of arrival: Ambulatory History of Present Illness HPI narrative: Patient is a 43-year-old male known alcoholic history of hypertension presenting today with wanting medication for withdrawal. He has gone through withdrawal in the past. He quit cold turkey I home he has previously had some medication to help him at home he is also done inpatient. He has no prior history of alcohol withdrawal seizures. He reports that he drinks about box of wine every 6 hours. At this time he reports alcohol is causing him more problems he received no boy from it any longer. It is affecting all his relationships. He does not necessarily want to go to inpatient detox he has things to do at home with his kids. He has now been evaluated by social work who has given him resources. He feels like his abdomen is a little bit bloated but no real pain. He certainly has no right upper quadrant pain. Related Data Home Medications Medication Instructions Recorded Confirmed amlodipine 10 mg tablet 10 mg PO DAILY 05/21/19 07/11/19 pravastatin 40 mg tablet 40 mg PO DAILY 05/21/19 07/11/19 Previous Rx's Medication Instructions Recorded aspirin 81 mg tablet,delayed 81 mg PO DAILY #30 tabs 03/25/19 release lisinopril 40 mg tablet 40 mg PO .QHS #30 tabs 03/25/19 omega-3 fatty acids-fish oil 340 1,000 mg PO BID #60 caps 03/25/19 mg-1,000 mg capsule (Fish Oil) chlordiazepoxide HCl 25 mg capsule See Rx Instructions .Route 11/02/22 .COMPLEX #32 caps amlodipine 10 mg tablet 10 mg PO DAILY #30 tabs 10/24/23 Allergies Allergy/AdvReac Type Severity Reaction Status Date / Time No Known Drug Allergies Allergy Verified 08/15/21 02:07 Patient History Medical History Chest pain Essential hypertriglyceridemia Hyperlipidemia with low HDL Hypertension Obstructive sleep apnea Surgical History No history of previous surgery Family History Father Cardiovascular disease Mother Hypothyroidism Sister Cancer Social History household members: spouse and children Smoking Status: Never smoker alcohol intake: current Smoking Status: Never smoker alcohol intake frequency: 3 or more drinks per day Alcohol type: beer and wine Substance Use Type: marijuana Exam Initial Vital Signs Initial Vital Signs: Vital Signs Temperature 97.8 F 10/24/23 13:00 Pulse Rate 120 H 10/24/23 13:00 Respiratory Rate 20 10/24/23 13:00 Blood Pressure 171/115 H 10/24/23 13:00 Pulse Oximetry 98 10/24/23 13:00 Oxygen Delivery Method Room Air 10/24/23 13:00 GENERAL: Alert 43-year-old male and in no acute distress. HEENT: Head atraumatic,EOMI, pupils reactive, face symmetric, moist mucous membranes CARDIOVASCULAR: Regular rate and rhythm without murmurs, rubs or gallops. RESPIRATORY: Breath sounds equal bilaterally, no wheezes rales or rhonchi. ABDOMEN: Soft, nontender no obvious fluid was negative right upper quadrant pain no guarding no rebound no Cade's sign EXTREMITIES: Normal range of motion, no clubbing or edema. Neurovascularly intact NEUROLOGICAL: Alert and oriented x4.Normal gait and speech. Cranial nerves II through XII grossly intact. No tremor SKIN: Warm, dry, no laceration, no petechiae, no rashes or lesions. Course Orders Ordered: Discontinued Medications Amlodipine Besylate (Amlodipine 5 Mg Tablet) 10 mg PO NOW ONE Stop: 10/24/23 17:14 Last Admin: 10/24/23 17:23 Dose: 10 mg Documented By: SYEDA Chlordiazepoxide HCl (Chlordiazepoxide 25 Mg Capsule) 50 mg PO NOW ONE Stop: 10/24/23 20:01 Last Admin: 10/24/23 20:57 Dose: 50 mg Documented By: EDDY Sodium Chloride (Normal Saline 0.9%) 1,000 mls @ 1,000 mls/hr IV BOLUS ONE Stop: 10/24/23 14:43 Last Infusion: 10/24/23 14:46 Dose: Infused Documented By: Admin: 10/24/23 13:46 Dose: 1,000 mls/hr Documented By: SYEDA Lorazepam (Lorazepam 2 Mg/Ml Inj) 2 mg IV NOW ONE Stop: 10/24/23 15:11 Last Admin: 10/24/23 15:24 Dose: 2 mg Documented By: RB Phenobarbital (Phenobarbital 65 Mg/Ml Vial) 260 mg IV NOW ONE Stop: 10/24/23 13:41 Last Admin: 10/24/23 13:45 Dose: 260 mg Documented By: RB Phenobarbital (Phenobarbital 65 Mg/Ml Vial) 130 mg IV NOW ONE Stop: 10/24/23 17:14 Last Admin: 10/24/23 17:23 Dose: 130 mg Documented By: RB Vital Signs Vital signs: Vital Signs - 8 hr 10/24/23 13:00 10/24/23 13:53 10/24/23 14:00 Temperature 97.8 F Pulse Rate 120 H 88 89 Respiratory Rate 20 20 Blood Pressure 171/115 H Pulse Oximetry 98 99 98 Oxygen Delivery Method Room Air 10/24/23 14:27 10/24/23 14:27 10/24/23 14:30 Temperature Pulse Rate 69 Respiratory Rate 18 Blood Pressure 180/102 H 179/104 H Pulse Oximetry 97 Oxygen Delivery Method 10/24/23 14:30 10/24/23 15:00 10/24/23 15:00 Temperature Pulse Rate 69 83 Respiratory Rate 17 25 H Blood Pressure 193/115 H Pulse Oximetry 96 97 Oxygen Delivery Method 10/24/23 15:15 10/24/23 15:15 10/24/23 15:30 Temperature Pulse Rate 86 Respiratory Rate 25 H Blood Pressure 159/90 H 165/96 H Pulse Oximetry 96 Oxygen Delivery Method 10/24/23 15:30 10/24/23 15:45 10/24/23 15:45 Temperature Pulse Rate 94 H 93 H Respiratory Rate 21 17 Blood Pressure 165/98 H Pulse Oximetry 97 96 Oxygen Delivery Method 10/24/23 16:00 10/24/23 16:00 10/24/23 16:15 Temperature Pulse Rate 102 H Respiratory Rate 23 Blood Pressure 173/98 H 192/94 H Pulse Oximetry 96 Oxygen Delivery Method 10/24/23 16:15 10/24/23 16:30 10/24/23 16:30 Temperature Pulse Rate 97 H 99 H Respiratory Rate 22 21 Blood Pressure 187/97 H Pulse Oximetry 96 96 Oxygen Delivery Method 10/24/23 16:46 10/24/23 16:46 10/24/23 17:00 Temperature Pulse Rate 123 H Respiratory Rate 25 H Blood Pressure 198/110 H 200/109 H Pulse Oximetry 96 Oxygen Delivery Method 10/24/23 17:00 10/24/23 17:15 10/24/23 17:15 Temperature Pulse Rate 120 H 99 H Respiratory Rate 19 20 Blood Pressure 170/90 H Pulse Oximetry 96 94 Oxygen Delivery Method MDM - Alcohol Lab Data 10/24/23 13:35 10/24/23 13:35 Labs: Lab Results 10/24/23 Range/Units 13:35 WBC 4.5 (4.5-11.0) X10^3/uL RBC 5.08 (4.5-5.9) X10^6/uL Hgb 16.5 (13.5-17.5) g/dL Hct 48.5 (41-53) % MCV 95.4 (80-100) fL MCH 32.5 (26-34) PG MCHC 34.1 (30-36) % RDW 14.1 (11.6-14.8) % Plt Count 213 (150-400) X10^3/uL Neut % (Auto) 48.6 L (50-75) % Lymph % (Auto) 39.6 (25-40) % Jennings % (Auto) 10.5 (3-14) % Eos % (Auto) 0.3 L (2-4) % Baso % (Auto) 1.0 (0-2) % Neut # (Auto) 2200 (0115-5755) /uL Lymph # (Auto) 1800 (3137-3262) /uL Jennings # (Auto) 500 (0-900) /uL Eos # (Auto) 0 (0-450) /uL Baso # (Auto) 0 (0-100) /uL Sodium 133 L (137-145) mmol/L Potassium 4.6 (3.4-5.1) mmol/L Chloride 97 L (98-107) mmol/L Carbon Dioxide 16 L (22-32) mmol/L BUN 15 (9-20) mg/dL Creatinine 0.87 (0.66-1.25) mg/dL Estimated GFR > 60 (>60) mL/min BUN/Creatinine Ratio 17.2 (6-22) Glucose 89 (70-100) mg/dL Calcium 8.5 (8.4-10.2) mg/dL Total Bilirubin 2.9 H (0.2-1.3) mg/dL AST 812 H (17-59) IU/L ALT 327 H (<50) IU/L Alkaline Phosphatase 113 (38-126) U/L Total Protein 8.0 (6.3-8.2) g/dL Albumin 3.7 (3.5-5.0) g/dL Globulin 4.3 H (1.7-4.1) g/dL Albumin/Globulin Ratio 0.9 L (1.0-2.8) Lipase 88 (23-300) U/L Ethyl Alcohol 31 H ( - 10) mg/dL Imaging Data US - abdomen: Radiologist's Impressoin: PROCEDURE: US ABDOMEN LIMITED INDICATIONS: ELEVATED BILIRUBIN, LIVER ENZYMES; ETOH ABUSE TECHNIQUE: Real-time focused scanning was performed of the abdomen, with image documentation. COMPARISON: None. FINDINGS: Liver is enlarged and demonstrates diffusely increased echogenicity. Gallbladder is grossly unremarkable. No biliary ductal dilatation. Pancreas is not well seen. IMPRESSION: 1. Hepatic steatosis. 2. No acute process. Dictated by: Edenilson Talbot M.D. on 10/24/2023 at 16:22 MDM Narrative Medical decision making narrative: Patient 43-year-old male with known alcohol disease presenting today with wanting help with detox. It sounds as though he is tired of drinking it is causing a negative impact in his life. He does not want inpatient detox. He has required some phenobarbital and Ativan here but obviously shaking. Blood work has been reviewed he does have an elevated bilirubin of 2.9, AST 812, ALT 327, alk-phos 113, lipase 88. Ultrasound reviewed hepatic steatosis no acute process or ascites Patient has evidence of alcoholic hepatitis but he is not having any right upper quadrant pain. He has not been evaluated by social work no need for inpatient treatment. He does seem responsible. He is now wanting inpatient rehab. Patient is medically cleared. Accepted at [facility]hab [facility] can not go into 1:00 a.m. He has been given amlodipine and blood pressure medications. Signed out to Dr. Palomo Discharge Plan Departure Patient Disposition: Home Clinical Impression: Alcohol abuse with withdrawal, Acute alcoholic hepatitis Instructions: DI for Delirium Tremens, DI for Alcohol Use Disorder Activity Restrictions/Additional Instructions: Go directly to rehab *You have been diagnosed with alcohol abuse, alcohol withdrawal and alcoholic hepatitis *What to do: At this time your liver is definitely showing signs and damage from alcohol. Strongly encourage you to a stain from alcohol. Blood pressure is noted to be elevated please continue to check your blood pressure once or twice daily discuss with primary care provider may require further blood pressure medication treat *Continue to take medications as directed Amlodipine 10 mg once daily *Follow up with your primary care provider in 2-3 days or call [phone] *Return to ER if you should have seizures significant withdrawal increased right upper quadrant pain abdominal swelling or any new, worsening or concerning symptoms Prescriptions: New amlodipine 10 mg tablet 10 mg PO DAILY Qty: 30 0RF No Action aspirin 81 mg Tablet,Delayed Release (Dr/Ec) 81 mg PO DAILY Qty: 30 0RF Fish Oil 340-1,000 mg Capsule 1,000 mg PO BID Qty: 60 0RF lisinopril 40 mg tablet 40 mg PO .QHS Qty: 30 0RF chlordiazepoxide HCl 25 mg capsule See Rx Instructions .ROUTE .COMPLEX Qty: 32 0RF Rx Instructions: Day 1: 50mg POq4 Day 2: 50mg POq6 Day 3: 50mg POq8 Day 4: 50mg POq12 Day 5: 50mg POqhs #32 amlodipine 10 mg tablet 10 mg PO DAILY pravastatin 40 mg tablet 40 mg PO DAILY Referrals: Graeme Villegas ARNP [Primary Care Provider] - Stand Alone Forms: Patient Portal/API
[2023-10-24] MEDS: PHENobarbital 65 MG/ML VIAL 260 MG IV (13:45)
[2023-10-24] MEDS: SODIUM CHLORIDE 0.9% 1,000 ML 1000 ML IV (13:46)
[2023-10-24 14:01] LABS: Ethanol (ETOH) 31 mg/dL
[2023-10-24 14:02] LABS: Alanine Aminotransferase 327 IU/L (<50); Albumin 3.7 g/dL (3.5-5.0); Albumin Globulin Ratio 0.9 (1.0-2.8); Alkaline Phosphatase 113 U/L (38-126); BUN Creatinine Ratio 17.2 (6-22); Bilirubin Total 2.9 mg/dL (0.2-1.3); Blood Urea Nitrogen 15 mg/dL (9-20); Calcium 8.5 mg/dL (8.4-10.2); Carbon Dioxide 16 mmol/L (22-32); Chloride 97 mmol/L (98-107); Estimated Glomerular Filt Rate > 60 mL/min (>60); Globulin 4.3 g/dL (1.7-4.1); Glucose 89 mg/dL (70-100); HEMOLYSIS 45 (0-50); Lipase 88 U/L (23-300); Potassium 4.6 mmol/L (3.4-5.1); Sodium 133 mmol/L (137-145)
[2023-10-24 14:08] LABS: Aspartate Aminotransferase 812 IU/L (17-59)
[2023-10-24 14:22] LABS: Add Manual Diff / Slide Review NO; Basophils Absolute Auto 0 /uL (0-100); Eosinophils Absolute Auto 0 /uL (0-450); Eosinophils Percent Auto 0.3 % (2-4); Hematocrit 48.5 % (41-53); Hemoglobin 16.5 g/dL (13.5-17.5); Lymphocytes Absolute Auto 1800 /uL (1100-4500); Lymphocytes Percent Auto 39.6 % (25-40); Mean Corpuscular HGB Conc 34.1 % (30-36); Mean Corpuscular Hemoglobin 32.5 PG (26-34); Mean Corpuscular Volume 95.4 fL (80-100); Monocytes Absolute Auto 500 /uL (0-900); Monocytes Percent Auto 10.5 % (3-14); Neutrophils Absolute Auto 2200 /uL (1500-7000); Neutrophils Percent Auto 48.6 % (50-75); Red Blood Cell Count 5.08 X10^6/uL (4.5-5.9); Red Cell Distribution Width 14.1 % (11.6-14.8); White Blood Cell Count 4.5 X10^3/uL (4.5-11.0)
[2023-10-24 14:25] LABS: Platelet Count 213 X10^3/uL (150-400)
--- NOTE | 2023-10-24 15:12 | CM.SWNOTE ---
ED LETTUCE CUTTER Assessment LETTUCE CUTTER - Supervisor Telephone Information Assessment LETTUCE CUTTER - Supervisor Telephone Information Assessment Start: 10/24/23 14:13 Freq: Status: Active Protocol: Document 10/24/23 14:14 BDL (Rec: 10/24/23 15:12 BDL [id number]) LETTUCE CUTTER/Supervisor Telephone Information Assessment Time Spent with Patient Start date 10/24/23 Visit Start Time 13:50 End date 10/24/23 Visit End Time 14:10 Total time Care Management spent on 20 minutes patient visit-in minutes Substance Abuse Screening Include Onset, Duration, Intensity Presenting Problem Patient presents to the ED due to concern for alcohol withdrawals. Pt states his last drink was 11 hours ago and was drinking a bota box (500 ml) of wine every 6 hours. Precipitating Event(s) Pt has a history of being a social drinker beginning in college. Pt disclosed that his social drinking led to needing to drinking for maintenance. Pt also disclosed that some of his friends has recently stopped drinking as well. Pt discussed feeling better after 6 week periods of not drinking. Pt disclosed that he has previously attempted to quit cold turkey and found it difficult. Patient Strengths Family and friends are supportive of sobriety. Pt discloses having a friend who sees a therapist and gave up drinking and acknowledged the benefits of doing so. Pt identified this person as someone to hold each other accountable. Pt has discussed removing alcohol from the home to aid in sobriety. Pt wants to stay sober for his children . Pt has made positive remarks around change including This is the last time I feel better when I don't drink Current Behavioral Health Provider(s) Pt looked into therapy through [facility] Facility, Provider, Ph. # better help online but did not complete intake. Family Hx of Behavioral Abuse Brother was a drinker in high school and went to [facility] for GAYLA treatment twice. Rehab Facilities? ((Date(s), Location(s) No reported history ) History of Withdrawal? Seizures? Pt indicates GI discomfort, night sweats, hearing music that's not playing (auditory hallucinations), as well as really vivid fever dreams as his withdrawal symptoms. Longest Period of Sobriety Several periods of a year sober. Pt discloses within the last few years his longest length of sobriety is around 6 weeks. Psychosocial information & Support Pt is a 43 y/o male who Systems resides in [facility] with spouse and two sons (15 y/o and 14 y/o). PT identifies his family and friends as supportive. Pt plans to look into outpatient services as well as AA groups. Pt has reached out to PCP for follow up and attempted to see PCP before coming to ED. 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 Legal Concerns Legal Matters - Outstanding Issues None disclosed. Mental Status Orientation (Person/Place/Time) Alert and oriented x4. Stated Mood Okay Affect (Congruent with Mood?) Euthymic, full range, congruent with mood Thought Content - Specify/Describe Pt endorses history of Obsessions, Delusions, Hallucinations auditory hallucinations when experiencing withdrawals. No other symptoms reported. Thought Processes (Iyedavk-Izpdfply-Vjgy Logical, coherent, goal Sgnpzjdn-Qrueptse-Cepcaiargk- directed. Eiegwluigyfmef-Gtohlcj-Yloieitkawnb- Thought Blocking) Speech (Qpzefb-Sfys-Hscodhp-Rapid-Soft- Normal Loud-Pressured) Motor (Avfbks-Fkwnhoqmz-Uftk-Other) Normal Insight (Mndz-Qegf-Ljac/Limited) Good. Judgement (Jxir-Cmqq-Opxz/Limited) Good. Impulse Control (Adequate-Impaired) Adequate during assessment. Memory (Qyyejxcgu-Prbovr-Crrtqz, Intact. Not formally assessed. Impaired-Intact) Concentration (Intact-Impaired) Intact. Attention (Intact-Impaired) Intact. Behavior (Appropriate-Inappropriate) Appropriate. Risk Assessment Suicidal Ideation (Plan) No Homicidal Ideation (Plan) No Comment Pt discussed feeling depressed two times in the past related to shame around his drinking. Pt denied any current thoughts around SI or HI. Intervention Intervention LETTUCE CUTTER's enter room to meet with pt. Pt endorses that he is ready to stop his drinking and wanted to seek help for withdrawal symptoms. Pt states he is not interested in going to a detox facility or inpatient rehab. Pt would like medication to help with the detox process. Pt has supportive family to lay out helper in sobriety. Pt's is onboard with removing alcohol from the home. PT would like to get sober for his two sons. PT has friends who have recently stopped drinking and identified another friend who has sought out mental health therapy to lay out helper in his sobriety. Pt plans for him and his friend to hold one another accountable. Pt is open to finding support through something like AA. PT has reached out to his PCP JOSUÉ Doherty at [facility]. Pt has not been seen in a year and a half but has began updating his pt portal to return for care. Pt feels like he can be honest with his provider regarding his alcohol use. Pt discussed a need to see his PCP to get back on blood pressure medication. Pt does not take any current medication but does take vitamins and supplements. Pt has also looked into therapy through better help online but stopped filling out the intake forms. Pt has a family history of GAYLA disorders and discussed his brother attending GAYLA treatment at [facility] twice during his high school years. Pt has several instances of sobriety over a year long but more recently his longest period of sobriety is 6 weeks. It is the opinion of this LETTUCE CUTTER that pt is safe to discharge to home upon medical clearance. Pt has plans to follow up with PCP and seek out outpatient services. LETTUCE CUTTER reviews this with ED provider Dr. Arrieta who indicates understanding. ED provider to evaluate pt further. Plan RA Plan Pt likely to discharge home upon medical clearance w/ prescribed medications. Pt to follow up with outpatient providers. Josse Simms MSW, [facility]
[2023-10-24] MEDS: LORazepam 2 MG/ML INJ IV (15:24)
--- NOTE | 2023-10-24 15:30 | DI.US.S_ITS ---
PROCEDURE: US ABDOMEN LIMITED INDICATIONS: ELEVATED BILIRUBIN, LIVER ENZYMES; ETOH ABUSE TECHNIQUE: Real-time focused scanning was performed of the abdomen, with image documentation. COMPARISON: None. FINDINGS: Liver is enlarged and demonstrates diffusely increased echogenicity. Gallbladder is grossly unremarkable. No biliary ductal dilatation. Pancreas is not well seen. IMPRESSION: 1. Hepatic steatosis. 2. No acute process. Dictated by: Edenilson Talbot M.D. on 10/24/2023 at 16:22 Approved by: Edenilson Talbot M.D. on 10/24/2023 at 16:22
[2023-10-24] MEDS: PHENobarbital 65 MG/ML VIAL 130 MG IV (17:23)
[2023-10-24] MEDS: AMLODIPINE 5 MG TABLET 10 MG PO (17:23)
--- NOTE | 2023-10-24 18:23 | CM.SWNOTE ---
ED PHYSICAL INSTRUCTOR Note RN informs PHYSICAL INSTRUCTOR that after conversation with ED provider and RN pt is now seeking detox and has questions about the process. PHYSICAL INSTRUCTOR reenters room to discuss detox with pt. Pt endorses interest in attending. PHYSICAL INSTRUCTOR calls [facility] [place] who confirmed they have one bed for a male pt. PHYSICAL INSTRUCTOR also called [facility] adn [facility] but neither had beds currently available. PHYSICAL INSTRUCTOR enters room to have pt call [facility] for intake screening. PHYSICAL INSTRUCTOR faxes clinical for review to [facility]. PHYSICAL INSTRUCTOR [facility] been [facility]. [facility] requests prescription for medication be faxed over. PHYSICAL INSTRUCTOR faxes prescription to [facility]. Pt acceptance time is 1 am. PHYSICAL INSTRUCTOR reviews this with pateint, at this time patient is determining if he will stay in ED or return home prior to date and time of acceptance. Plan: Pt to go to [facility] at 1 am 10/25/23 for detox. Josse Simms PHYSICAL INSTRUCTOR, [facility]
[2023-10-24] MEDS: chlordiazePOXIDE 25 MG CAPSULE 50 MG PO (20:57)
== END 2023-10-24 21:03 | disposition home or self-care (01) ==
PROVIDERS: Emergency Provider Emergency Medicine; PCP Registered Nurse
DX: F10.139 Alcohol abuse with withdrawal, unspecified (principal); K70.10 Alcoholic hepatitis without ascites; Y90.1 Blood alcohol level of 20-39 mg/100 ml
CPT/HCPCS: 36415; 76705; 80053; 80320; 83690; 85025; 96374; 96375; 96376; 99284; J2060; J2560

== ENCOUNTER 2024-05-22 03:31 | Inpatient (IN) | payer BC, SELFPAY ==
[2019-03-24 05:17] VITALS: BMI 30.2
[2024-05-22] VITALS (34 sets, daily range): BP systolic 134–199; BP diastolic 83–124; PULSE 66–121; RESP 15–30; TEMP 36.6–37.1; O2SAT 94–98; BMI 28.1
--- NOTE | 2024-05-22 04:49 | ED.ALCOHOL ---
HPI - Alcohol <Yuly Meyer MD - Last Filed: 05/22/24 18:07> General Chief Complaint: Toxicology Problem Stated Complaint: alcohol withdrawls Time Seen by Provider: 05/22/24 03:51 Source: patient Mode of arrival: Ambulatory History of Present Illness HPI narrative: 43-year-old gentleman with history of hypertension, hyperlipidemia alcohol use disorder with periods of sobriety. He has done inpatient treatment at 1 point and had 63 days of sobriety after that. Recently went to a wedding, had another drink has sent him down a spiraling pathway in the past 4 days has been significant binge he describes drinking two full ?boda boxes of wine (1000cc) to last for 4-6 hours. Unable to sleep longer than 3 hrs due to withdrawal sx. This evening when he woke up at 3:00 a.m. needing more alcohol he awoke his and together they decided it was time to come to the emergency department. He is committed to quitting. He notes in the past he has had auditory hallucinations with withdrawal but has never had seizures. He states his last drink was approximately 8 hours ago. Initial CIWA score is 24. He reports increasing anxiety, tremor, episode of emesis just prior to arrival with continued nausea. Related Data Home Medications Medication Instructions Recorded Confirmed No Known Home Medications 05/22/24 05/22/24 Allergies Allergy/AdvReac Type Severity Reaction Status Date / Time No Known Drug Allergies Allergy Verified 08/15/21 02:07 Review of Systems <Yuly Meyer MD - Last Filed: 05/22/24 18:07> Review of Systems Narrative: Pertinent positive and negative findings as per HPI Patient History <Yuly Meyer MD - Last Filed: 05/22/24 18:07> Medical History Alcohol use disorder Obstructive sleep apnea Hyperlipidemia with low HDL Essential hypertriglyceridemia Chest pain Hypertension Surgical History No history of previous surgery Family History Father Cardiovascular disease Mother Hypothyroidism Sister Cancer Social History household members: spouse and children Smoking Status: Never smoker alcohol intake: current Smoking Status: Never smoker alcohol intake frequency: 3 or more drinks per day Alcohol type: beer and wine Substance Use Type: marijuana Exam <Yuly Meyer MD - Last Filed: 05/22/24 18:07> Initial Vital Signs Initial Vital Signs: Vital Signs Temperature 98.2 F 05/22/24 03:53 Pulse Rate 117 H 05/22/24 03:53 Respiratory Rate 18 05/22/24 03:53 Blood Pressure 199/119 H 05/22/24 03:53 Pulse Oximetry 95 05/22/24 03:53 Oxygen Delivery Method Room Air 05/22/24 03:53 General: Healthy appearing, Able to give a complete and coherent history. Well-nourished well-developed HEENT: Moist mucous membranes, normal sclera with reactive pupils, Respiratory: Lungs are clear to auscultation, no wheezing no rales no rhonchi. Full and symmetrical air movement Cardiac: Tachycardic but otherwise Regular rate and rhythm no murmurs no bruits Abdomen: Soft, nontender, hyperactive bowel tones no flank pain Skin: Flushed, mildly diaphoretic Neurologic: Moderate tremor with hands outstretched Extremities: No trauma, well perfused Psych: Cooperative, appropriate insight and affect [facility] for Alcohol Withdrawal on 05/22/2024 430am RESULT SUMMARY: 24 points Patients with scores =20 frequently require medication for withdrawal, and may also require admission to the ICU for observation for seizures or development of delirium tremens, and more frequent medication dosing. INPUTS: Nausea/vomiting ?> 6 = (More severe symptoms) Tremor ?> 4 = Moderate, with patient's arms extended Paroxysmal sweats ?> 3 = (More severe symptoms) Anxiety ?> 4 = Moderately anxious, or guarded, so anxiety is inferred Agitation ?> 4 = Moderately fidgety and restless Tactile disturbances ?> 0 = None Auditory disturbances ?> 0 = Not present Visual disturbances ?> 0 = Not present Headache/fullness in head ?> 3 = Moderate Orientation/clouding of sensorium ?> 0 = Oriented, can do serial additions <Marcelle Davalos DO - Last Filed: 05/22/24 07:53> Initial Vital Signs Initial Vital Signs: Vital Signs Temperature 98.2 F 05/22/24 03:53 Pulse Rate 117 H 05/22/24 03:53 Respiratory Rate 18 05/22/24 03:53 Blood Pressure 199/119 H 05/22/24 03:53 Pulse Oximetry 95 05/22/24 03:53 Oxygen Delivery Method Room Air 05/22/24 03:53 Course <Yuly Meyer MD - Last Filed: 05/22/24 18:07> Orders Ordered: ED Orders 05/22/24 10:14 Comprehensive Metabolic Panel Urgent 05/23/24 05:00 Complete Blood Count AUTO DIFF DAILY Magnesium DAILY 05/24/24 05:00 Complete Blood Count AUTO DIFF DAILY Magnesium DAILY 05/25/24 05:00 Complete Blood Count AUTO DIFF DAILY Magnesium DAILY Acetaminophen (Acetaminophen 325 Mg Tablet) 650 mg PO Q6H PRN PRN Reason: Fever/Mild Pain (1-3) Amlodipine Besylate (Amlodipine 5 Mg Tablet) 10 mg PO DAILY [facility] Last Admin: 05/22/24 11:37 Dose: 10 mg Documented By: TERESA Chlordiazepoxide HCl (Chlordiazepoxide 25 Mg Capsule) 50 mg PO Q6HR [facility] Last Admin: 05/22/24 17:56 Dose: 50 mg Documented By: Admin: 05/22/24 11:37 Dose: 50 mg Documented By: Admin: 05/22/24 08:01 Dose: 50 mg Documented By: EMMA Folic Acid (Folic Acid 1 Mg Tablet) 1 mg PO DAILY [facility] Lisinopril (Lisinopril 20 Mg Tablet) 40 mg PO BEDTIME NATASHA Lorazepam (Lorazepam 2 Mg/Ml Inj) 0 mg IV CIWAPRN PRN; Protocol PRN Reason: Alcohol Withdrawal Lorazepam (Lorazepam 1 Mg Tablet) 0 mg PO CIWAPRN PRN; Protocol PRN Reason: Alcohol Withdrawal Multivitamins (Multivitamin 1 Tablet) 1 tab PO DAILY [facility] Naloxone HCl (Naloxone 0.4 Mg/Ml Vial) 0.2 mg IV Q2MIN PRN PRN Reason: Opiate Reversal Thiamine HCl (Thiamine 100 Mg Tablet) 100 mg PO DAILY [facility] Stop: 05/26/24 09:01 Discontinued Medications Sodium Chloride (Normal Saline 0.9%) 1,000 mls @ 1,000 mls/hr IV BOLUS ONE Stop: 05/22/24 05:44 Last Infusion: 05/22/24 06:18 Dose: Infused Documented By: Admin: 05/22/24 05:15 Dose: 1,000 mls/hr Documented By: GUMARO Thiamine HCl 100 mg/ Sodium (Chloride) 101 mls @ 404 mls/hr IV NOW ONE Stop: 05/22/24 04:46 Last Infusion: 05/22/24 05:35 Dose: Infused Documented By: Admin: 05/22/24 04:58 Dose: 404 mls/hr Documented By: GUMARO Ondansetron HCl (Ondansetron 4 Mg/2 Ml Inj) 4 mg IV NOW ONE Stop: 05/22/24 04:46 Last Admin: 05/22/24 04:59 Dose: 4 mg Documented By: GUMARO Phenobarbital (Phenobarbital 65 Mg/Ml Vial) 260 mg IV NOW ONE Stop: 05/22/24 04:46 Last Admin: 05/22/24 04:55 Dose: 260 mg Documented By: GUMARO Vital Signs Vital signs: Vital Signs - 8 hr 05/22/24 03:53 05/22/24 04:08 05/22/24 04:30 Temperature 98.2 F Pulse Rate 117 H 100 H Respiratory Rate 18 Blood Pressure 199/119 H 198/124 H Pulse Oximetry 95 95 Oxygen Delivery Method Room Air 05/22/24 04:30 05/22/24 05:00 05/22/24 05:00 Temperature Pulse Rate 109 H 83 Respiratory Rate Blood Pressure 151/97 H Pulse Oximetry 97 94 Oxygen Delivery Method Room Air 05/22/24 05:30 05/22/24 05:30 05/22/24 06:00 Temperature Pulse Rate 82 Respiratory Rate Blood Pressure 168/92 H 155/97 H Pulse Oximetry 96 Oxygen Delivery Method 05/22/24 06:00 05/22/24 06:30 05/22/24 06:30 Temperature Pulse Rate 96 H 82 Respiratory Rate Blood Pressure 152/90 H Pulse Oximetry 97 96 Oxygen Delivery Method 05/22/24 07:00 05/22/24 07:00 Temperature Pulse Rate 90 Respiratory Rate Blood Pressure 158/99 H Pulse Oximetry 97 Oxygen Delivery Method <Marcelle Davalos, - Last Filed: 05/22/24 07:53> Orders Ordered: ED Orders 05/22/24 10:14 Comprehensive Metabolic Panel Urgent 05/23/24 05:00 Complete Blood Count AUTO DIFF DAILY Magnesium DAILY 05/24/24 05:00 Complete Blood Count AUTO DIFF DAILY Magnesium DAILY 05/25/24 05:00 Complete Blood Count AUTO DIFF DAILY Magnesium DAILY Acetaminophen (Acetaminophen 325 Mg Tablet) 650 mg PO Q6H PRN PRN Reason: Fever/Mild Pain (1-3) Amlodipine Besylate (Amlodipine 5 Mg Tablet) 10 mg PO DAILY [facility] Last Admin: 05/22/24 11:37 Dose: 10 mg Documented By: TERESA Chlordiazepoxide HCl (Chlordiazepoxide 25 Mg Capsule) 50 mg PO Q6HR [facility] Last Admin: 05/22/24 17:56 Dose: 50 mg Documented By: Admin: 05/22/24 11:37 Dose: 50 mg Documented By: Admin: 05/22/24 08:01 Dose: 50 mg Documented By: EMMA Folic Acid (Folic Acid 1 Mg Tablet) 1 mg PO DAILY [facility] Lisinopril (Lisinopril 20 Mg Tablet) 40 mg PO BEDTIME NATASHA Lorazepam (Lorazepam 2 Mg/Ml Inj) 0 mg IV CIWAPRN PRN; Protocol PRN Reason: Alcohol Withdrawal Lorazepam (Lorazepam 1 Mg Tablet) 0 mg PO CIWAPRN PRN; Protocol PRN Reason: Alcohol Withdrawal Multivitamins (Multivitamin 1 Tablet) 1 tab PO DAILY [facility] Naloxone HCl (Naloxone 0.4 Mg/Ml Vial) 0.2 mg IV Q2MIN PRN PRN Reason: Opiate Reversal Thiamine HCl (Thiamine 100 Mg Tablet) 100 mg PO DAILY [facility] Stop: 05/26/24 09:01 Discontinued Medications Sodium Chloride (Normal Saline 0.9%) 1,000 mls @ 1,000 mls/hr IV BOLUS ONE Stop: 05/22/24 05:44 Last Infusion: 05/22/24 06:18 Dose: Infused Documented By: Admin: 05/22/24 05:15 Dose: 1,000 mls/hr Documented By: GUMARO Thiamine HCl 100 mg/ Sodium (Chloride) 101 mls @ 404 mls/hr IV NOW ONE Stop: 05/22/24 04:46 Last Infusion: 05/22/24 05:35 Dose: Infused Documented By: Admin: 05/22/24 04:58 Dose: 404 mls/hr Documented By: GUMARO Ondansetron HCl (Ondansetron 4 Mg/2 Ml Inj) 4 mg IV NOW ONE Stop: 05/22/24 04:46 Last Admin: 05/22/24 04:59 Dose: 4 mg Documented By: GUMARO Phenobarbital (Phenobarbital 65 Mg/Ml Vial) 260 mg IV NOW ONE Stop: 05/22/24 04:46 Last Admin: 05/22/24 04:55 Dose: 260 mg Documented By: GUMARO Vital Signs Vital signs: Vital Signs - 8 hr 05/22/24 03:53 05/22/24 04:08 05/22/24 04:30 Temperature 98.2 F Pulse Rate 117 H 100 H Respiratory Rate 18 Blood Pressure 199/119 H 198/124 H Pulse Oximetry 95 95 Oxygen Delivery Method Room Air 05/22/24 04:30 05/22/24 05:00 05/22/24 05:00 Temperature Pulse Rate 109 H 83 Respiratory Rate Blood Pressure 151/97 H Pulse Oximetry 97 94 Oxygen Delivery Method Room Air 05/22/24 05:30 05/22/24 05:30 05/22/24 06:00 Temperature Pulse Rate 82 Respiratory Rate Blood Pressure 168/92 H 155/97 H Pulse Oximetry 96 Oxygen Delivery Method 05/22/24 06:00 05/22/24 06:30 05/22/24 06:30 Temperature Pulse Rate 96 H 82 Respiratory Rate Blood Pressure 152/90 H Pulse Oximetry 97 96 Oxygen Delivery Method 05/22/24 07:00 05/22/24 07:00 Temperature Pulse Rate 90 Respiratory Rate Blood Pressure 158/99 H Pulse Oximetry 97 Oxygen Delivery Method MDM - Alcohol <Yuly Meyer MD - Last Filed: 05/22/24 18:07> Lab Data 05/22/24 04:55 05/22/24 10:14 Labs: Lab Results 05/22/24 Range/Units 04:55 WBC 4.8 (4.5-11.0) X10^3/uL RBC 4.64 (4.5-5.9) X10^6/uL Hgb 14.8 (13.5-17.5) g/dL Hct 42.8 (41-53) % MCV 92.2 (80-100) fL MCH 32.0 (26-34) PG MCHC 34.7 (30-36) % RDW 14.7 (11.6-14.8) % Plt Count 173 (150-400) X10^3/uL Neut % (Auto) 44.2 L (50-75) % Lymph % (Auto) 40.7 H (25-40) % [place] % (Auto) 11.7 (3-14) % Eos % (Auto) 2.4 (2-4) % Baso % (Auto) 1.0 (0-2) % Neut # (Auto) 2100 (7470-1730) /uL Lymph # (Auto) 2000 (6355-6303) /uL [place] # (Auto) 600 (0-900) /uL Eos # (Auto) 100 (0-450) /uL Baso # (Auto) 0 (0-100) /uL Sodium 137 (137-145) mmol/L Potassium 4.0 (3.4-5.1) mmol/L Chloride 102 (98-107) mmol/L Carbon Dioxide 25 (22-32) mmol/L BUN 13 (9-20) mg/dL Creatinine 0.60 L (0.66-1.25) mg/dL Estimated GFR > 60 (>60) mL/min BUN/Creatinine Ratio 21.7 (6-22) Glucose 101 H (70-100) mg/dL Calcium 9.2 (8.4-10.2) mg/dL Magnesium 1.7 (1.6-2.3) mg/dL Total Bilirubin 0.8 (0.2-1.3) mg/dL AST 101 H (17-59) IU/L ALT 51 H (<50) IU/L Alkaline Phosphatase 118 (38-126) U/L Total Protein 7.4 (6.3-8.2) g/dL Albumin 4.3 (3.5-5.0) g/dL Globulin 3.1 (1.7-4.1) g/dL Albumin/Globulin Ratio 1.4 (1.0-2.8) Ethyl Alcohol 12 H ( - 10) mg/dL [facility] Narrative Medical decision making narrative: CC: Acute alcohol withdrawal Complicating co-morbidities: Hypertension, hyperlipidemia Data collected from: patient Social determinants of health that may influence the patients condition: Still , is supportive Differential considered: Mild withdrawal, severe withdrawal, DTs, seizures Exam documented above, pertinent findings include: Anxious, tremulous, tachycardic, hypotensive speech is nonslurred he is focused inappropriate Lab Test results independently reviewed as above. Pertinent findings: CBC is unremarkable Chemistries are reassuring. Bilirubin AST and ALT are all lower in comparison to October of 2023 Alcohol level is 12, almost undetectable Treatments: With the initial CIWA score at 24 and alcohol level not yet back, he is given 260 mg of phenobarbital. Understands that hospitalization is likely going to be appropriate to help him get through this. If acute withdrawal Re-evaluations:620 patient is feeling somewhat better after 260 mg of IV phenobarbital. Still slightly tachycardic and hypertensive. CIWA score is below 10 Discussion: 43-year-old gentleman with alcohol use disorder. Increased use over the last couple of days with significant withdrawal symptoms comes in for help with sobering. It responded well to IV phenobarbital but with the initial CIWA score of 24 hospital admission will be appropriate. He is very amenable to admission and help with getting past the severe withdrawal symptoms. We will contact the hospitalist <Marcelle Davalos DO - Last Filed: 05/22/24 07:53> Lab Data Labs: Lab Results 05/22/24 Range/Units 04:55 WBC 4.8 (4.5-11.0) X10^3/uL RBC 4.64 (4.5-5.9) X10^6/uL Hgb 14.8 (13.5-17.5) g/dL Hct 42.8 (41-53) % MCV 92.2 (80-100) fL MCH 32.0 (26-34) PG MCHC 34.7 (30-36) % RDW 14.7 (11.6-14.8) % Plt Count 173 (150-400) X10^3/uL Neut % (Auto) 44.2 L (50-75) % Lymph % (Auto) 40.7 H (25-40) % [place] % (Auto) 11.7 (3-14) % Eos % (Auto) 2.4 (2-4) % Baso % (Auto) 1.0 (0-2) % Neut # (Auto) 2100 (8076-8280) /uL Lymph # (Auto) 2000 (7528-5127) /uL [place] # (Auto) 600 (0-900) /uL Eos # (Auto) 100 (0-450) /uL Baso # (Auto) 0 (0-100) /uL Sodium 137 (137-145) mmol/L Potassium 4.0 (3.4-5.1) mmol/L Chloride 102 (98-107) mmol/L Carbon Dioxide 25 (22-32) mmol/L BUN 13 (9-20) mg/dL Creatinine 0.60 L (0.66-1.25) mg/dL Estimated GFR > 60 (>60) mL/min BUN/Creatinine Ratio 21.7 (6-22) Glucose 101 H (70-100) mg/dL Calcium 9.2 (8.4-10.2) mg/dL Magnesium 1.7 (1.6-2.3) mg/dL Total Bilirubin 0.8 (0.2-1.3) mg/dL AST 101 H (17-59) IU/L ALT 51 H (<50) IU/L Alkaline Phosphatase 118 (38-126) U/L Total Protein 7.4 (6.3-8.2) g/dL Albumin 4.3 (3.5-5.0) g/dL Globulin 3.1 (1.7-4.1) g/dL Albumin/Globulin Ratio 1.4 (1.0-2.8) Ethyl Alcohol 12 H ( - 10) mg/dL MDM Narrative Medical decision making narrative: CC: Acute alcohol withdrawal Complicating co-morbidities: Hypertension, hyperlipidemia Data collected from: patient Social determinants of health that may influence the patients condition: Still , is supportive Differential considered: Mild withdrawal, severe withdrawal, DTs, seizures Exam documented above, pertinent findings include: Anxious, tremulous, tachycardic, hypotensive speech is nonslurred he is focused inappropriate Lab Test results independently reviewed as above. Pertinent findings: CBC is unremarkable Chemistries are reassuring. Bilirubin AST and ALT are all lower in comparison to October of 2023 Alcohol level is 12, almost undetectable Treatments: With the initial CIWA score at 24 and alcohol level not yet back, he is given 260 mg of phenobarbital. Understands that hospitalization is likely going to be appropriate to help him get through this. If acute withdrawal Re-evaluations:620 patient is feeling somewhat better after 260 mg of IV phenobarbital. Still slightly tachycardic and hypertensive. CIWA score is below 10 Discussion: 43-year-old gentleman with alcohol use disorder. Increased use over the last couple of days with significant withdrawal symptoms comes in for help with sobering. It responded well to IV phenobarbital but with the initial CIWA score of 24 hospital admission will be appropriate. He is very amenable to admission and help with getting past the severe withdrawal symptoms. We will contact the hospitalist [phone] Dr. Davalos: Patient signed out to myself by Dr. Meyer. Patient is seen and evaluated by myself. Awaiting hospitalist call back. Labs were reviewed, patient received phenobarb 260 mg he states he is feeling somewhat better. Still slightly hypertensive tachycardia has been improving. Was not having xena hallucinations but has had them in the past. States no prior seizures. He is amenable to admission although states he would rather go home if that has an option but had a very high CIWA score on arrival. He is clear that he does not wish to go to a facility for detox. Patient is restless, very faint tremor still slightly hypertensive, no tachycardia on exam. Patient is alert, oriented and appropriate. Spoke with Dr. Serrano accepts for inpatient. Discharge Plan Departure Patient Disposition: Admitted As Inpatient Clinical Impression: Alcohol use disorder Alcohol withdrawal syndrome Qualifiers: Complication of substance-induced condition: with perceptual disturbance Qualified Code(s): F10.932 - Alcohol use, unspecified with withdrawal with perceptual disturbance Hypertension Qualifiers: Hypertension type: primary hypertension Qualified Code(s): I10 - Essential (primary) hypertension Hyperlipidemia Qualifiers: Hyperlipidemia type: unspecified Qualified Code(s): E78.5 - Hyperlipidemia, unspecified Admit Date/Time: 05/22/24 07:40 Admit Provider: Dwayne Serrano
[2024-05-22] MEDS: PHENobarbital 65 MG/ML VIAL 260 MG IV (04:55)
[2024-05-22] MEDS: THIAMINE 100 MG in SODIUM CHLORIDE 0.9% 100 ML 404 MG IV (04:58)
[2024-05-22] MEDS: ONDANSETRON 4 MG/2 ML INJ IV (04:59)
[2024-05-22 05:02] LABS: Add Manual Diff / Slide Review NO; Basophils Absolute Auto 0 /uL (0-100); Eosinophils Absolute Auto 100 /uL (0-450); Eosinophils Percent Auto 2.4 % (2-4); Hematocrit 42.8 % (41-53); Hemoglobin 14.8 g/dL (13.5-17.5); Lymphocytes Absolute Auto 2000 /uL (1100-4500); Lymphocytes Percent Auto 40.7 % (25-40); Mean Corpuscular HGB Conc 34.7 % (30-36); Mean Corpuscular Volume 92.2 fL (80-100); Monocytes Absolute Auto 600 /uL (0-900); Monocytes Percent Auto 11.7 % (3-14); Neutrophils Absolute Auto 2100 /uL (1500-7000); Neutrophils Percent Auto 44.2 % (50-75); Platelet Count 173 X10^3/uL (150-400); Red Blood Cell Count 4.64 X10^6/uL (4.5-5.9); Red Cell Distribution Width 14.7 % (11.6-14.8); White Blood Cell Count 4.8 X10^3/uL (4.5-11.0)
[2024-05-22 05:14] LABS: Alanine Aminotransferase 51 IU/L (<50); Albumin 4.3 g/dL (3.5-5.0); Albumin Globulin Ratio 1.4 (1.0-2.8); Alkaline Phosphatase 118 U/L (38-126); Aspartate Aminotransferase 101 IU/L (17-59); BUN Creatinine Ratio 21.7 (6-22); Bilirubin Total 0.8 mg/dL (0.2-1.3); Blood Urea Nitrogen 13 mg/dL (9-20); Calcium 9.2 mg/dL (8.4-10.2); Carbon Dioxide 25 mmol/L (22-32); Chloride 102 mmol/L (98-107); Estimated Glomerular Filt Rate > 60 mL/min (>60); Globulin 3.1 g/dL (1.7-4.1); Glucose 101 mg/dL (70-100); HEMOLYSIS 33 (0-50); Magnesium 1.7 mg/dL (1.6-2.3); Sodium 137 mmol/L (137-145); Total Protein 7.4 g/dL (6.3-8.2)
[2024-05-22 05:15] LABS: Ethanol (ETOH) 12 mg/dL
[2024-05-22] MEDS: SODIUM CHLORIDE 0.9% 1,000 ML 1000 ML IV (05:15)
[2024-05-22] MEDS: chlordiazePOXIDE 25 MG CAPSULE 50 MG PO ×4 (08:01→23:27)
[2024-05-22 10:45] LABS: Alanine Aminotransferase 49 IU/L (<50); Albumin 3.8 g/dL (3.5-5.0); Albumin Globulin Ratio 1.2 (1.0-2.8); Alkaline Phosphatase 95 U/L (38-126); Aspartate Aminotransferase 94 IU/L (17-59); BUN Creatinine Ratio 17.5 (6-22); Bilirubin Total 0.9 mg/dL (0.2-1.3); Blood Urea Nitrogen 11 mg/dL (9-20); Calcium 9.2 mg/dL (8.4-10.2); Carbon Dioxide 28 mmol/L (22-32); Chloride 100 mmol/L (98-107); Estimated Glomerular Filt Rate > 60 mL/min (>60); Globulin 3.1 g/dL (1.7-4.1); Glucose 100 mg/dL (70-100); HEMOLYSIS < 15 (0-50); Potassium 3.8 mmol/L (3.4-5.1); Sodium 132 mmol/L (137-145); Total Protein 6.9 g/dL (6.3-8.2)
[2024-05-22] MEDS: AMLODIPINE 5 MG TABLET 10 MG PO (11:37)
--- NOTE | 2024-05-22 11:37 | P.HP_ITS ---
History of Present Illness History of Present Illness Date Patient Seen: 05/22/24 Time Patient Seen: 11:37 Chief complaint: alcohol withdrawls Narrative: 43 year old male with PMH of EtOH, RADHA, HTN who presented with withdrawal symptoms. He reported abdominal pain, nausea but no vomiting. He was shaky and mildly anxious. Initial CIWA score was >20. He was given phenobarbital in the ER. He denies recent fever, chills, shortness of breath or cough. No melena, BRBPR, or hematochezia. He drinks multiple boat boxes per day currently, and if he stops drinking will start to experience auditory hallucinations. He has been admitted before for alchohol in the past, no prior seizures. He is motivated to start drinking, but does not feel like he needs inpatient resources for this currently. [facility] Medical History Alcohol use disorder Obstructive sleep apnea Hyperlipidemia with low HDL Essential hypertriglyceridemia Chest pain Hypertension Surgical History No history of previous surgery Family History Father Cardiovascular disease Mother Hypothyroidism Sister Cancer Social History household members: spouse and children Smoking Status: Never smoker alcohol intake: current Meds Home Medications and Allergies Allergies Allergy/AdvReac Type Severity Reaction Status Date / Time No Known Drug Allergies Allergy Verified 08/15/21 02:07 Review of Systems Review of Systems Narrative: All other systems reviewed with the patient and are negative unless otherwise stated. Exam Vital Signs (past 8 hours): - 05/22/24 03:53 05/22/24 04:08 05/22/24 04:30 Temperature 98.2 F Pulse Rate 117 H 100 H Respiratory Rate 18 Blood Pressure 199/119 H 198/124 H Pulse Oximetry 95 95 Oxygen Delivery Method Room Air 05/22/24 04:30 05/22/24 05:00 05/22/24 05:00 Temperature Pulse Rate 109 H 83 Respiratory Rate Blood Pressure 151/97 H Pulse Oximetry 97 94 Oxygen Delivery Method Room Air 05/22/24 05:30 05/22/24 05:30 05/22/24 06:00 Temperature Pulse Rate 82 Respiratory Rate Blood Pressure 168/92 H 155/97 H Pulse Oximetry 96 Oxygen Delivery Method 05/22/24 06:00 05/22/24 06:30 05/22/24 06:30 Temperature Pulse Rate 96 H 82 Respiratory Rate Blood Pressure 152/90 H Pulse Oximetry 97 96 Oxygen Delivery Method 05/22/24 07:00 05/22/24 07:00 05/22/24 07:30 Temperature Pulse Rate 90 Respiratory Rate Blood Pressure 158/99 H 146/83 H Pulse Oximetry 97 Oxygen Delivery Method 05/22/24 07:30 05/22/24 08:01 05/22/24 08:01 Temperature Pulse Rate 86 94 H Respiratory Rate Blood Pressure 179/103 H Pulse Oximetry 96 98 Oxygen Delivery Method 05/22/24 08:27 05/22/24 09:33 05/22/24 09:34 Temperature 98.7 F 98.0 F Pulse Rate 112 H 104 H 90 Respiratory Rate 16 18 Blood Pressure 179/103 H 190/114 H Pulse Oximetry 97 98 98 Oxygen Delivery Method Room Air Room Air 05/22/24 09:34 05/22/24 09:34 05/22/24 10:00 Temperature Pulse Rate 94 H Respiratory Rate Blood Pressure 190/114 H Pulse Oximetry 98 97 Oxygen Delivery Method Room Air Oxygen Delivery Method Room Air Narrative Exam Narrative: General:? Patient is well developed and well nourished, in no distress at this time. HEENT:? Normocephalic, atraumatic, extraocular muscles intact, oral pharynx is clear and mucous membranes are moist. Chest:? Normal AP diameter and contour without kyphoscoliosis, no tachypnea, equal chest rise bilaterally. Lungs:? CTA b/l no wheezing rhonchi or rales. Cardio:?RRR no m/r/g. Abdomen: S NT ND. Extremities: No edema or joint effusions. No cyanosis or clubbing. Neuro:? Alert and orientated x3,? sensation to touch intact in all extremities, no gross deficits noted of cranial nerves. + tongue fasciculations, mild tremulousness. Psych:? Patient has a well-kept appearance, appropriate affect, mental status attitude thought context and judgment are appropriate for age. Objective Labs 05/22/24 04:55 05/22/24 10:14 Labs: Laboratory Results - last 24 hr 05/22/24 05/22/24 04:55 10:14 WBC 4.8 RBC 4.64 Hgb 14.8 Hct 42.8 MCV 92.2 MCH 32.0 MCHC 34.7 RDW 14.7 Plt Count 173 Neut % (Auto) 44.2 L Lymph % (Auto) 40.7 H [place] % (Auto) 11.7 Eos % (Auto) 2.4 Baso % (Auto) 1.0 Neut # (Auto) 2100 Lymph # (Auto) 2000 [place] # (Auto) 600 Eos # (Auto) 100 Baso # (Auto) 0 Sodium 137 132 L Potassium 4.0 3.8 Chloride 102 100 Carbon Dioxide 25 28 BUN 13 11 Creatinine 0.60 L 0.63 L Estimated GFR > 60 > 60 BUN/Creatinine Ratio 21.7 17.5 Glucose 101 H 100 Calcium 9.2 9.2 Magnesium 1.7 Total Bilirubin 0.8 0.9 AST 101 H 94 H ALT 51 H 49 Alkaline Phosphatase 118 95 Total Protein 7.4 6.9 Albumin 4.3 3.8 Globulin 3.1 3.1 Albumin/Globulin Ratio 1.4 1.2 Ethyl Alcohol 12 H Assessment & Plan Assessment & Plan narrative: 1. Alcohol withdrawal, present on admission with mild alcoholic hepatitis - given phenobarb in the ER with good response - continue librium 50 mg q6 hr, titrate down over the coming days - CIWA protocol ativan - continue telemetry - Labs with mild alcoholic hepatitis. Normal bilirubin. Continue to follow, also check INR for DF score tomorrow. - given severe withdrawal symptoms on presentation, with close proximity (<24hrs) to last drink, may have worsening symptoms before improvement. 2. HTN - amlodipine 10 - lisinopril 40 mg nightly 3. Hyponatremia - mild at 132, regular diet ordered, will follow. Patient is asymptomatic. No further evaluation at this time. Code: Full, surrogate is patient's spouse DVT: Low risk I have utilized all available immediate resources to obtain, update, or review the patient's current medications. Dispo: patient admitted under inpatient status. Likely discharge home in approx 2 days. Additional history obtained via discussions with the ER provider. These discussions contributed to the creation of the above assessment and plan. I have reviewed patient's presenting documentation, labs, and imaging personally. Time-Based Coding :: [TOTAL MINUTES] spent with patient and on the chart (including review of chart, obtaining history, exam, reviewing outside data, placing orders, documenting exam and treatment plan, and counseling patient) on [DATE].
[2024-05-22 19:24] LABS: MRSA (Nasal) PCR NOT DETECTED (Not Detect)
[2024-05-22] MEDS: SODIUM CHLORIDE 0.9% FLUSH 10 ML IV (20:05)
[2024-05-22] MEDS: lisinopriL 20 MG TABLET 40 MG PO (20:05)
[2024-05-23] VITALS (7 sets, daily range): BP systolic 125; BP diastolic 82–85; PULSE 79–111; RESP 19–30; TEMP 36.1–36.5; O2SAT 95–98
[2024-05-23 04:51] LABS: Add Manual Diff / Slide Review NO; Basophils Absolute Auto 100 /uL (0-100); Basophils Percent Auto 0.8 % (0-2); Eosinophils Absolute Auto 100 /uL (0-450); Eosinophils Percent Auto 2.1 % (2-4); Hematocrit 42.8 % (41-53); Hemoglobin 14.7 g/dL (13.5-17.5); Lymphocytes Absolute Auto 2100 /uL (1100-4500); Lymphocytes Percent Auto 30.6 % (25-40); Mean Corpuscular HGB Conc 34.3 % (30-36); Mean Corpuscular Hemoglobin 32.1 PG (26-34); Mean Corpuscular Volume 93.5 fL (80-100); Monocytes Absolute Auto 600 /uL (0-900); Monocytes Percent Auto 8.8 % (3-14); Neutrophils Absolute Auto 4000 /uL (1500-7000); Neutrophils Percent Auto 57.7 % (50-75); Platelet Count 157 X10^3/uL (150-400); Red Blood Cell Count 4.57 X10^6/uL (4.5-5.9); Red Cell Distribution Width 14.4 % (11.6-14.8); White Blood Cell Count 6.9 X10^3/uL (4.5-11.0)
[2024-05-23] MEDS: chlordiazePOXIDE 25 MG CAPSULE 50 MG PO (06:12)
[2024-05-23] MEDS: MULTIVITAMIN 1 TABLET 1 TAB PO (09:15)
[2024-05-23] MEDS: FOLIC ACID 1 MG TABLET PO (09:15)
[2024-05-23] MEDS: SODIUM CHLORIDE 0.9% FLUSH 10 ML IV (09:16)
[2024-05-23] MEDS: AMLODIPINE 5 MG TABLET 10 MG PO (09:16)
[2024-05-23] MEDS: THIAMINE 100 MG TABLET PO (09:17)
--- NOTE | 2024-05-23 09:18 | P.DS_ITS ---
History of Present Illness History of Present Illness Chief complaint: alcohol withdrawls Narrative: From H&P: 43 year old male with PMH of EtOH, RADHA, HTN who presented with withdrawal symptoms. He reported abdominal pain, nausea but no vomiting. He was shaky and mildly anxious. Initial CIWA score was >20. He was given phenobarbital in the ER. He denies recent fever, chills, shortness of breath or cough. No melena, BRBPR, or hematochezia. He drinks multiple boat boxes per day currently, and if he stops drinking will start to experience auditory hallucinations. He has been admitted before for alchohol in the past, no prior seizures. He is motivated to start drinking, but does not feel like he needs inpatient resources for this currently. Discharge Providers Provider Date of admission: 05/22/24 07:40 Discharge Date: 05/23/24 Primary care physician: Graeme Villegas ND Consults: None. Discharge provider: Ulisses Luke MD Summary Hospital Course Discharge Diagnosis: 1. Alcohol withdrawal, present on admission with mild alcoholic hepatitis - given phenobarb in the ER with good response - continue librium 50 mg q6 hr, titrate down over the coming days - CIWA protocol ativan - continue telemetry - Labs with mild alcoholic hepatitis. Normal bilirubin. Continue to follow, also check INR for DF score tomorrow. - given severe withdrawal symptoms on presentation, with close proximity (<24hrs) to last drink, may have worsening symptoms before improvement. 2. HTN - amlodipine 10 - lisinopril 40 mg nightly 3. Hyponatremia - mild at 132, regular diet ordered, will follow. Patient is asymptomatic. No further evaluation at this time. Hospital Course: He did well overnight scoring only a 1 on the CIWA on having a mild tachycardia on the morning of discharge. He felt at or near baseline and felt to be stable for discharge. His plan is to pursue a 100% sobriety. He does have good insight to his alcohol use disorder and does sincerely want to make changes to assure his sobriety. He voices good understanding of the risks of loss of family and job as well as the importance of a network for accountability and further resources that he will need for ongoing sobriety. Status at Discharge Cognitive/behavioral status at discharge: at baseline, oriented Functional status at discharge: independent ambulation Overall status at discharge: patient is back to baseline Time Spent with Patient Time spent: Greater than 30 minutes Exam Vital Signs (past 8 hours): - 05/23/24 02:00 05/23/24 03:00 05/23/24 03:07 Temperature 97.7 F Pulse Rate 98 H 79 Respiratory Rate 24 19 Blood Pressure 125/85 Pulse Oximetry 96 96 95 Oxygen Delivery Method Room Air Oxygen Flow Rate 0 05/23/24 03:07 05/23/24 08:41 05/23/24 08:41 Temperature Pulse Rate 111 H Respiratory Rate 22 Blood Pressure 125/85 125/82 Pulse Oximetry 98 Oxygen Delivery Method Oxygen Flow Rate 05/23/24 08:44 Temperature Pulse Rate 107 H Respiratory Rate 30 H Blood Pressure Pulse Oximetry Oxygen Delivery Method Oxygen Flow Rate Oxygen Delivery Method Room Air Oxygen Flow Rate 0 Narrative Exam Narrative: NAD, alert and oriented. Fluent speech. Lungs are clear, normal rate and effort. Heart is regular, no murmur gallop or rub. Abdomen is soft, non distended. Extremities are free of edema. Objective Labs 05/23/24 04:08 05/22/24 10:14 Labs: Laboratory Results - last 24 hr 05/22/24 05/22/24 05/23/24 10:12 10:14 04:08 WBC 6.9 RBC 4.57 Hgb 14.7 Hct 42.8 MCV 93.5 MCH 32.1 MCHC 34.3 RDW 14.4 Plt Count 157 Neut % (Auto) 57.7 Lymph % (Auto) 30.6 [place] % (Auto) 8.8 Eos % (Auto) 2.1 Baso % (Auto) 0.8 Neut # (Auto) 4000 Lymph # (Auto) 2100 [place] # (Auto) 600 Eos # (Auto) 100 Baso # (Auto) 100 Sodium 132 L Potassium 3.8 Chloride 100 Carbon Dioxide 28 BUN 11 Creatinine 0.63 L Estimated GFR > 60 BUN/Creatinine Ratio 17.5 Glucose 100 Calcium 9.2 Magnesium 2.0 Total Bilirubin 0.9 AST 94 H ALT 49 Alkaline Phosphatase 95 Total Protein 6.9 Albumin 3.8 Globulin 3.1 Albumin/Globulin Ratio 1.2 Nasal Screen MRSA (PCR) Not detected PFSH Medical History Alcohol use disorder Obstructive sleep apnea Hyperlipidemia with low HDL Essential hypertriglyceridemia Chest pain Hypertension Surgical History No history of previous surgery Family History Father Cardiovascular disease Mother Hypothyroidism Sister Cancer Social History household members: spouse and children Smoking Status: Never smoker alcohol intake: current Discharge Assessment & Plan Assessment and Plan Assessment: 1. Alcohol withdrawal, present on admission with mild alcoholic hepatitis, present on admission and improved. 2. HTN, present on admission and stable. 3. Hyponatremia, present on admission and stable. Plan of Treatment: Stable for discharge home, he was a plan for sobriety. He was good support with his and friends who are also sober. He was given Librium to use as a Librium taper over the next several days. Discharge Plan Discharge Plan Patient Disposition: Home Provider Discharge Comment: Stable for discharge home with close follow up. Discharge orders & Medications Prescriptions: New chlordiazepoxide HCl 10 mg capsule 10 mg PO Q8H PRN (Reason: anxiety) Qty: 20 0RF Rx Instructions: use 1 every 8 hours and decrease to 1/2 every 8 hours as needed. Medication counseling provided by Pharmacist: No Follow up/Referrals: Graeme Villegas ARNP [Primary Care Provider] - Diet/Activity/Treatments Diet: Regular Activity: As tolerated. Visit Report/Discharge Packet Instructions: DI for Alcohol Use Disorder Stand Alone Forms: Patient Portal/API Discharge Data Primary Care Provider: Graeme Villegas
--- NOTE | 2024-05-23 10:31 | CM.DANOTE ---
Patient is a 43 yo male who was admitted INPT Status on 05/22/24 for ETOH withdrawal. Pt has [employer] for insurance and his PCP is Graeme Villegas. EMR was reviewed. Per MD, pt with ETOH and hx of withdrawals but no seizures but can get auditory hallucinations with withdrawals and now medically stable to d/c on a taper of librium. SW met bedside with pt and explained role and he confirms he lives in [facility] with his and kids and works at [employer] and drives and very active and independent. Pt confirms he has a long hx of ETOH abuse since college and has a family hx of alcoholism. Pt states he drinks a couple boxes of wine or beer when he is bingeing but has periods of sobriety. Pt's longest sobriety was about 90 days before he felt he could just have one, it's summertime and then fully relapsed. Pt has been through withdrawals about 7 times including this admission and pt states he is ready to remain sober. Pt has motivation and insight and able to identify some triggers. Pt states his job was stressful and he recently quit his job since he is with the [employer] he still has insurance and has a second interview this week for a job he is excited about. Pt states his brother has been through Inpt [facility] tx before and pt had the experience of participating in the family sessions but denies any hx of Inpt [facility] tx himself and has not utilized outpt [facility] tx either. Pt able to identify multiple family members, his spouse, and many friends who are supportive of his sobriety. Pt states he has already reached out to family and friends and feels he has had a light bulb moment where before he always thought he could just be a social drinker and have one or two and now he realizes this is not an option for him and therefore he has already reached out to family and friends to help hold him accountable. Pt has multiple friends who have become sober or are currently attempting to be sober and that they will be a good support system to each other. SW discussed the benefit to a formal outpt ETOH tx provider/counselor in combination with supportive family and friends and pt very motivated and appreciative and SW provided the list of local [facility] outpt resources. Plan: Patient to discharge home today with librium taper via his own vehicle in the parking lot and has supportive community and outpt [facility] tx resources. ANTOINETTE Garcia Discharge Planning/Care Management CM Discharge Assessment Start: 05/23/24 10:28 Freq: Status: Active Protocol: Document 05/23/24 10:28 BF (Rec: 05/23/24 10:31 BF [id number]) Discharge Planning Assessment Assigned Senior Financial Analyst ANTOINETTE Beckman DPOA/Assigned Designee Name informally spouse Advance Directives? No: information given to family History Provided By Patient,Medical Record Has Patient been admitted in last 30 No days? Prior Living Arrangements House Household Members spouse,children Type of transporation used prior to Drives own vehicle admit Independent with ADL's Yes Is patient alert and oriented? Yes Caregiver for Another Yes: kids at home Barriers to Discharge No Discharge Plan Home Transportation Arrangement vehicle in the parking lot Referrals Initiated Other Additional Comment outpt [facility] resources provided, not interested in Inpt tx at this time Whiteboard Updated in Patient Room with Yes name and ext. # of Senior Financial Analyst Review Status In Process Please Provide Date Initial DC 05/23/24 Assessment Was Performed Next Review Type Continued Stay Review
--- NOTE | 2024-05-23 11:06 | PC.NURSE ---
Pt discharged per order. IV removed. All belongings sent home with patient. Pt declined use of wheelchair upon discharge.
== END 2024-05-23 10:50 | disposition home or self-care (01) | DRG 897 ==
LOC: ED 04:59 → AC 07:41 → ICU 08:21
PROVIDERS: Admitting Provider Internal Medicine; Emergency Provider Emergency Medicine; PCP Registered Nurse; Referring Provider Emergency Medicine; Visit Provider Internal Medicine
DX: F10.939 Alcohol use, unspecified with withdrawal, unspecified (principal); E87.1 Hypo-osmolality and hyponatremia; K70.10 Alcoholic hepatitis without ascites; E78.5 Hyperlipidemia, unspecified; I10 Essential (primary) hypertension; Y90.0 Blood alcohol level of less than 20 mg/100 ml
CPT/HCPCS: 36415; 80053; 80320; 83735; 85025; 87797; 96365; 96375; 99284; 99285; J2405; J2560